=== PATIENT | female | born 1955 | race Caucasian/White ===

== ENCOUNTER 2019-10-30 14:31 | Emergency (ER) | payer BC, SELFPAY ==
[2019-10-30 14:45] VITALS: BP 188/93; PULSE 92; RESP 21; TEMP 36.7; O2SAT 99
--- NOTE | 2019-10-30 15:01 | ED.URI ---
HPI - URI/Sore Throat General Chief Complaint: Upper Respiratory Infection Stated Complaint: Sore throat/cough/headache Time Seen by Provider: 10/30/19 15:01 Source: patient and RN notes reviewed History of Present Illness HPI Narrative: Patient is a 63-year-old female presents the urgent care with complaints of sore throat, cough, headache. Patient denies any shortness of breath. States that she was vomiting with a little bit of nausea on Monday which is since subsided. Denies of any chest pain. Reports of a history of bronchitis when she was a smoker. States that she has been using sinus Pred and Robitussin [id number]. No other acute complaints. No acute distress noted. Patient read the plan of care. Related Data Home Medications Medication Instructions Recorded Confirmed naproxen 500 mg PO BID PRN 10/30/19 10/30/19 simvastatin 40 mg PO DAILY 10/30/19 10/30/19 tramadol 50 mg PO Q6H PRN 10/30/19 10/30/19 Allergies Allergy/AdvReac Type Severity Reaction Status Date / Time No Known Allergies Allergy Unknown NONE Verified 07/20/10 15:01 Review of Systems Review of Systems: Narrative: CONSTITUTIONAL: Reports of chills and sweats without known fever EYES: Denies visual changes, redness, or discharge. ENT: Reports of postnasal drainage and intermittent sore throat CARDIOVASCULAR: Denies chest pain, palpitations, or edema. RESPIRATORY: Reports a productive cough without dyspnea GASTROINTESTINAL: Denies abdominal pain, nausea, vomiting, or diarrhea. GENITOURINARY: Denies dysuria or hematuria. SKIN: Denies rash or itching. MUSCULOSKELETAL: Denies back pain, joint pain, or myalgia. NEUROLOGIC: Reports of intermittent headaches All other systems reviewed are negative, except as documented in HPI. PMFSH Comments At the time of my signature, I reviewed and agree with the nursing past medical, surgical, social, and family history. There is no relevant family history pertinent to the patient complaint. Exam Narrative: Exam Narrative: GENERAL: This is a well-nourished, well-developed patient, in no apparent distress. HEAD: normocephalic, atraumatic. EYES: PERRL. Sclera clear/white. Vision is grossly intact. EARS: External ears normal, auditory canals clear and without drainage, TMs normal without perforation. Hearing grossly intact. NOSE: External nose normal with no obvious nasal discharge, nares without redness, no rhinorrhea. THROAT: Mucous membranes moist, posterior pharynx clear. Moderate postnasal drainage NECK: Neck supple, non-tender without lymphadenopathy CARDIOVASCULAR: Regular rate and rhythm without murmurs, gallops, or rubs. RESPIRATORY: Slight crackles and diminished right lower lobe. Otherwise clear SKIN: warm, intact with no suspicious lesions or rash, good texture and turgor. NEURO: awake, alert, and oriented to person, place and time. There were no obvious focal neurologic abnormalities. EXTREMITIES: No clubbing, cyanosis, or edema. Course Vital Signs Vital signs: Vital Signs Temperature 98.1 F 10/30/19 14:45 Pulse Rate 92 10/30/19 14:45 Respiratory Rate 21 H 10/30/19 14:45 Blood Pressure 188/93 H 10/30/19 14:45 Pulse Oximetry 99 10/30/19 14:45 Temperature 98.1 F 10/30/19 14:45 Pulse Rate 92 10/30/19 14:45 Respiratory Rate 21 H 10/30/19 14:45 Blood Pressure 188/93 H 10/30/19 14:45 Pulse Oximetry 99 10/30/19 14:45 Reviewed?patient is informed that they may have pre-hypertension or hypertension based on a blood pressure reading in the department. I recommend the patient call the primary care provider listed on their discharge instructions or a physician of their choice this week to arrange follow-up for further evaluation of possible pre-hypertension or hypertension. MDM - URI/Sore Throat MDM Narrative Medical decision making narrative: Advised the patient to complete steroid regimen as prescribed. Complete antibiotic regimen as prescribed. Use inhaler as needed for
== END 2019-10-30 15:15 | disposition home or self-care (01) ==
PROVIDERS: Emergency Provider Nurse Practitioner Family; PCP Internal Medicine Gastroenterology
DX: J40 Bronchitis, not specified as acute or chronic (principal); E78.00 Pure hypercholesterolemia, unspecified; M17.0 Bilateral primary osteoarthritis of knee
CPT/HCPCS: 99213; G0463

== ENCOUNTER 2020-10-19 12:39 | Emergency (ER) | payer MEDICARE, SELFPAY ==
--- NOTE | 2020-10-19 12:57 | PC.NURSE ---
Patient was never seen by this nurse. Left from registration before triage
== END 2020-10-19 13:43 | disposition left against medical advice (07) ==
PROVIDERS: Emergency Provider Nurse Practitioner; PCP Internal Medicine Gastroenterology
DX: Z53.21 Procedure and treatment not carried out due to patient leaving prior to being seen by health care provider (principal)
CPT/HCPCS: 99199

== ENCOUNTER 2020-10-19 12:56 | Observation (INO) | payer MEDICARE, SELFPAY ==
[2020-10-19] VITALS (12 sets, daily range): BP systolic 132–180; BP diastolic 72–104; PULSE 69–98; RESP 12–24; TEMP 35.8–36.4; O2SAT 96–100; BMI 29.2
--- NOTE | ~2020-10-19 | XR_ITS ---
EXAMINATION: XR chest 2V EXAM DATE: 10/19/2020 13:24 INDICATION: Left anterior chest pain. History high blood pressure. TECHNIQUE: Frontal and lateral projections of the chest obtained and reviewed. Comparison is made to prior examination from 10/19/2020 FINDINGS: The lungs are clear. There are no pleural effusions. The cardiomediastinal silhouette is within normal limits. There is no pneumothorax suspected. The bones and soft tissues are unremarkab le. IMPRESSION: Unremarkable chest x-ray exam. Reviewed, dictated and finalized at location B. [facility]
--- NOTE | 2020-10-19 13:02 | ECG_ITS ---
Measurements Intervals [place] Rate: 79 P: 50 [place]: 162 QRS: -4 QRSD: 92 T: 37 QT: 337 QTc: 387 Interpretive Statements SINUS RHYTHM BASELINE ARTIFACT- I, III, AVL BORDERLINE ECG Electronically Signed On 10-19-2020 13:12:04 FOUNDRY MANAGER by Shaun Roblero D.O.
[2020-10-19 13:16] LABS: Basophils Absolute Auto 0.1 K/mm3 (0.0-0.1); Basophils Percent Auto 0.9 % (0.2-1.2); Eosinophils Absolute Auto 0.1 K/mm3 (0-0.3); Eosinophils Percent Auto 1.6 % (0-4.4); Hematocrit 42.2 % (37.0-47.0); Hemoglobin 14.2 g/dL (12.0-15.0); Immature Granulocyte Absolute 0.03 K/mm3 (0.00-0.031); Immature Granulocyte Percent A 0.4 % (0-0.5); Lymphocytes Absolute Auto 2.39 K/mm3 (0.9-3.2); Lymphocytes Percent Auto 30.3 % (18.3-44.2); Mean Corpuscular HGB Conc 33.6 g/dl (32-36); Mean Corpuscular Hemoglobin 31.1 pg (26-34); Mean Corpuscular Volume 92.3 fl (80-100); Mean Platelet Volume 9.9 fl (7.4-10.4); Monocytes Absolute Auto 0.5 K/mm3 (0.1-0.6); Monocytes Percent Auto 6.7 % (2.6-8.5); Neutrophils Absolute Auto 4.7 K/mm3 (1.3-6.7); Neutrophils Percent Auto 60.1 % (45.5-73.1); Platelet Count Result 357 k/mm3 (150-375); Red Blood Count 4.57 M/mm3 (4.2-5.4); Red Cell Distribution Width 12.7 % (11.5-14.5); White Blood Count 7.9 K/mm3 (4.5-10.0)
[2020-10-19 13:25] LABS: INR 0.9; Prothrombin Time 12.8 Seconds (11.1-14.7)
[2020-10-19 13:26] LABS: Partial Thromboplastin Time 28.5 SECONDS (22.3-36.8)
[2020-10-19 13:32] LABS: Anion Gap 8 mmol/L (8-16); Blood Urea Nitrogen 23 mg/dL (7-17); Carbon Dioxide 27 mmol/L (22-30); Chloride 104 mmol/L (98-107); Estimated CRCL calculation 73 ml/min; Estimated Glomerular Filt Rate > 60; Glucose 107 mg/dL (65-105); Potassium 4.3 mmol/L (3.4-5.0); Sodium 139 mmol/L (137-145)
[2020-10-19 13:44] LABS: Troponin I < 0.012 ng/mL (0.000-0.034)
[2020-10-19] MEDS: ASPIRIN 81 MG CHEWABLE TABLET 324 MG PO (14:37)
--- NOTE | 2020-10-19 14:53 | ED.CHESTPAIN ---
HPI - Chest Pain General Chief Complaint: Chest Pain Stated Complaint: Chest Pain Time Seen by Provider: 10/19/20 14:37 History of Present Illness HPI narrative: Patient is a 64-year-old female who presents ER with central chest pain. Pressure in deep. No radiation. 11/04. Lasted from 8 AM to 2 PM. No nausea/vomiting/shortness of breath. No aggravating or alleviating factors. No previous ID. Had a father who had a heart attack in his 40s and then again when he was elderly. Related Data Home Medications Medication Instructions Recorded Confirmed naproxen 500 mg PO BID PRN 10/30/19 10/19/20 simvastatin 40 mg PO HS 10/30/19 10/19/20 tramadol 50 mg PO Q6H PRN 10/30/19 10/19/20 Allergies Allergy/AdvReac Type Severity Reaction Status Date / Time No Known Allergies Allergy Unknown NONE Verified 10/19/20 14:37 Review of Systems Review of Systems: All systems reviewed & are unremarkable except as noted in HPI and below Constitutional: Constitutional: Denies chills, Denies fever(s) and Denies weakness ENT: Denies nasal congestion and Denies sore throat Cardiovascular: Cardiovascular: Reports chest pain, Denies rapid heart rate and Denies radiating jaw, neck or arm pain Respiratory: Respiratory: Denies cough, Denies dyspnea and Denies wheezing Gastrointestinal: Gastrointestinal: Denies abdominal pain, Denies diarrhea, Denies nausea and Denies vomiting Musculoskeletal: Musculoskeletal: Denies myalgias and Denies muscle cramps PMFSH Past Medical History Medical History (Updated 10/19/20 @ 21:30 by Tu Parekr MD) Hyperlipidemia Hypertension Surgical History Surgical History (Updated 10/19/20 @ 14:58 by Tu Parker MD) History of back surgery Family History Family History Father Myocardial infarct Skin cancer Mother Cerebrovascular accident Sibling Pulmonary emboli Social History Social History (Updated 10/19/20 @ 14:59 by Tu Parker MD) Smoking status: Former smoker Tobacco type: cigarettes Additional smoking assessment comments: quit 20 years ago Alcohol intake: never Substance use: never Substance use type: does not use Living arrangements: with family Spiritual care concerns: No Exam Narrative: Exam Narrative: GENERAL: Well-appearing, well-nourished, and in no acute distress. HEAD: Normocephalic, atraumatic. ENT: Mucous membranes moist. CHEST: Clear to auscultation. No respiratory distress. HEART: Regular rate and rhythm. Normal peripheral pulses. ABDOMEN: Soft, nontender, nondistended. EXTREMITIES: Normal range of motion. No edema. NEURO: Alert and oriented x3. PSYCH: Normal mood and affect. Course Course Emergency Course: Discussed with Dr. Roblero. Admit to [facility]. Vital Signs Vital signs: Vital Signs Temperature 96.5 F L 10/19/20 13:02 Pulse Rate 92 10/19/20 13:02 Respiratory Rate 18 10/19/20 13:02 Blood Pressure 180/97 H 10/19/20 13:02 Pulse Oximetry 96 10/19/20 13:02 Temperature 96.5 F L 10/19/20 13:02 Pulse Rate 82 10/19/20 20:00 Respiratory Rate 12 10/19/20 19:39 Blood Pressure 141/72 H 10/19/20 19:39 Pulse Oximetry 96 10/19/20 19:39 MDM - Chest Pain Lab Data Result diagrams: 10/19/20 13:10 10/19/20 13:10 Labs: Lab Results 10/19/20 10/19/20 10/19/20 Range/Units 13:10 13:10 13:10 WBC 7.9 (4.5-10.0) K/mm3 RBC 4.57 (4.2-5.4) M/mm3 Hgb 14.2 (12.0-15.0) g/dL Hct 42.2 (37.0-47.0) % MCV 92.3 (80-100) fl MCH 31.1 (26-34) pg MCHC 33.6 (32-36) g/dl RDW 12.7 (11.5-14.5) % Plt Count 357 (150-375) k/mm3 MPV 9.9 (7.4-10.4) fl Immature Gran % (Auto) 0.4 (0-0.5) % Neut % (Auto) 60.1 (45.5-73.1) % Lymph % (Auto) 30.3 (18.3-44.2) % [place] % (Auto) 6.7 (2.6-8.5) % Eos % (Auto) 1.6 (0-4.4) % Baso % (Auto) 0.9 (0.2-1.2) % Lymph # (Auto) 2.3
[2020-10-19 16:13] LABS: Troponin I < 0.012 ng/mL (0.000-0.034)
--- NOTE | 2020-10-19 17:54 | PC.NURSE ---
food tray ordered for pt at this time
--- NOTE | 2020-10-19 18:56 | PM.IMHP ---
H&P: HPI History of Present Illness Date/Time: 10/19/20 18:56 Reason for admit: Chest pain. Chief Complaint: Chest pain Narrative: Jesika Maxwell is a 64 year old female who came to ER due to chest pain. She has a history of hypertension (but is not on medications since it fluctuates) and dyslipidemia. Reports chest pain started this morning at 8:00 at rest and lasted until 2 pm. Pain has subsided. She can walk several blocks without any problems. She thinks it is stress related chest pains as she has to take care of 2 great-grandchildren and 2 of her children committed suicide. Denies orthopnea, PND, edema, palpitations, sob. Review of Systems Review of Systems: All systems reviewed & are unremarkable except as noted in HPI and below Constitutional: Constitutional: Reports as per HPI, Denies chills and Denies fever(s) Cardiovascular: Cardiovascular: Reports as per HPI, Reports chest pain, Denies leg edema and Denies lightheadedness Respiratory: Respiratory: Reports as per HPI and Denies dyspnea Gastrointestinal: Gastrointestinal: Reports as per HPI and Denies abdominal pain Genitourinary: Genitourinary: Reports as per HPI and Denies dysuria Musculoskeletal: Musculoskeletal: Reports as per HPI and Reports arthralgias Neurologic: Reports as per HPI, Denies dizziness and Denies syncope PMF Past Medical History Medical History (Updated 10/19/20 @ 21:30 by Tu Parker MD) Hyperlipidemia Hypertension Surgical History Surgical History (Updated 10/19/20 @ 14:58 by Tu Parker MD) History of back surgery Family History Family History Father Myocardial infarct Skin cancer Mother Cerebrovascular accident Sibling Pulmonary emboli Social History Social History (Updated 10/19/20 @ 14:59 by Tu Parker MD) Smoking status: Former smoker Tobacco type: cigarettes Additional smoking assessment comments: quit 20 years ago Alcohol intake: never Substance use: never Substance use type: does not use Living arrangements: with family Spiritual care concerns: No Meds Home Medications and Allergies Home Medications Medication Instructions Recorded Confirmed Type naproxen 500 mg PO BID PRN 10/30/19 10/19/20 History simvastatin 40 mg PO HS 10/30/19 10/19/20 History tramadol 50 mg PO Q6H PRN 10/30/19 10/19/20 History Allergies Allergy/AdvReac Type Severity Reaction Status Date / Time No Known Allergies Allergy Unknown NONE Verified 10/19/20 14:37 Vital Signs Vital Signs - 24 hr 10/19/20 13:02 10/19/20 14:33 10/19/20 14:35 Temperature 96.5 F L Pulse Rate 92 79 78 Respiratory Rate 18 24 H Blood Pressure 180/97 H 163/104 H Pulse Oximetry 96 97 10/19/20 15:49 10/19/20 16:33 10/19/20 16:34 Temperature Pulse Rate 83 82 Respiratory Rate 21 H 21 H Blood Pressure 143/81 H 143/80 H Pulse Oximetry 97 100 100 10/19/20 17:38 10/19/20 18:38 Temperature Pulse Rate 84 69 Respiratory Rate 19 15 Blood Pressure 132/91 H 132/91 H Pulse Oximetry 98 100 Exam Const: General: cooperative, healthy appearing and comfortable Resp: Auscultation: clear to auscultation bilaterally, no crackles, no rales, no rhonchi and no wheezes Cardio: Jugular venous distension: no JVD Rate: regular rate Rhythm: regular rhythm Heart sounds: no murmurs Peripheral pulses: dorsalis pedis present GI: GI Palp: No abdominal tenderness and Yes Soft to palpation Neuro: General: oriented to person, oriented to place and oriented to time Extrem: Right lower extremity: no edema Left lower extremity: no edema H&P: Results Labs Labs: Short CBC 10/19/20 Range/Units 13:10 WBC 7.9 (4.5-10.0) K/mm3 Hgb 14.2 (12.0-15.0) g/dL Hct 42.2 (37.0-47.0) % Plt Count 357 (150-375) k/mm3 [facility] 10/19/20 13:10 Sodium 139 Potassium 4.3 Chloride 104 Carbon Dioxide 27 BUN 23 H Creatin
--- NOTE | 2020-10-19 19:05 | ECG_ITS ---
Measurements Intervals [place] Rate: 79 P: 44 [place]: 164 QRS: -7 QRSD: 92 T: 35 QT: 361 QTc: 415 Interpretive Statements SINUS RHYTHM NORMAL ECG Electronically Signed On 10-19-2020 19:24:22 PRESSURE TANK OPERATOR by Shaun Roblero D.O.
[2020-10-19 19:17] LABS: Troponin I < 0.012 ng/mL (0.000-0.034)
[2020-10-19] MEDS: SIMVASTATIN 20 MG TABLET 40 MG PO (20:07)
[2020-10-19 20:45] LABS: Cholesterol 197 mg/dL (0-200); HDL Direct 53 mg/dL; LDL Cholesterol Direct 114 mg/dL; Triglycerides 171 mg/dL (<150)
[2020-10-20] VITALS: PULSE 71
--- NOTE | 2020-10-20 | EST_ITS ---
Patient Info Name: Jesika Maxwell Age: 64 years : 1955 Gender: Female Ht: 66 in Wt: 174 lbs BSA: 1.94 m2 HR: 72 bpm BP: 165 / 89 mmHg Exam Date: 10/20/2020 8:08 AM Exam Location: [facility] Patient Status: Inpatient Admit Date: 10/19/2020 Staff Ordering Physician: Shaun Roblero DO Special Investigator: Justa Hernandez RDCS Attending Provider: Shaun Roblero DO Exercise Technologist: Cally Cody RDCS Exercise Physician: Shaun Roblero DO Exam Type: CA stress echo Study Info Indications R07.9 - Chest pain, unspecified Treadmill exercise stress echocardiogram is performed. Summary 1. 1. Negative Darnell exercise stress test for ischemic ST changes by ECG criteria. 2. 2. Poor functional capacity, achieving 4.7 METs of workload. 3. 3. Baseline hypertension with hypertensive response to exercise. 4. 4. Rapid HR response to exercise. 5. 5. Appropriate HR recovery at 1 minute post exercise. 6. 6. Negative stress echocardiogram for ischemia by wall motion analysis. 7. 7. Patient informed of the above results. Stress Echo Findings Left Ventricle Appropriate increase in LV endocardial thickening with systole. Appropriate augmentation of contractility with systole. No wall motion abnormality. Left Ventricle Normal LV systolic function, no wall motion abnormality. Protocol: Darnell Stress ECG Details Stage: REST Duration (min): 4 min : 49 sec Speed (mph): 0.0 Grade (%): 0 HR (bpm): 74 SBP (mmHg): 165 DBP (mmHg): 89 METS: --- Stage: REST Duration (min): 11 min : 44 sec Speed (mph): 0.0 Grade (%): 0 HR (bpm): 86 SBP (mmHg): 165 DBP (mmHg): 89 METS: --- Stage: STAGE 1 Duration (min): 1 min : 0 sec Speed (mph): 1.7 Grade (%): 10 HR (bpm): 115 SBP (mmHg): 165 DBP (mmHg): 89 METS: --- Stage: STAGE 1 Duration (min): 2 min : 0 sec Speed (mph): 1.7 Grade (%): 10 HR (bpm): 136 SBP (mmHg): 165 DBP (mmHg): 89 METS: --- Stage: STAGE 1 Duration (min): 3 min : 0 sec Speed (mph): 1.7 Grade (%): 10 HR (bpm): 140 SBP (mmHg): 235 DBP (mmHg): 101 METS: --- Stage: STAGE 2 Duration (min): 0 min : 1 sec Speed (mph): 0.0 Grade (%): 0 HR (bpm): 140 SBP (mmHg): 235 DBP (mmHg): 101 METS: --- Stage: RECOVERY Duration (min): 0 min : 58 sec Speed (mph): 0.0 Grade (%): 0 HR (bpm): 104 SBP (mmHg): 235 DBP (mmHg): 101 METS: --- Stage: RECOVERY Duration (min): 1 min : 58 sec Speed (mph): 0.0 Grade (%): 0 HR (bpm): 92 SBP (mmHg): 241 DBP (mmHg): 89 METS: --- Stage: RECOVERY Duration (min): 2 min : 58 sec Speed (mph): 0.0 Grade (%): 0 HR (bpm): 97 SBP (mmHg): 241 DBP (mmHg): 89 METS: --- Stage: RECOVERY Duration (min): 3 min : 59 sec Speed (mph): 0.0 Grade (%): 0 HR (bpm): 82 SBP (mmHg): 179 DBP (mmHg): 71 METS: --- Stage: RECOVERY Duration
[2020-10-20 02:00] VITALS: PULSE 73
[2020-10-20 04:00] VITALS: BP 134/57; PULSE 76; PULSE 82; RESP 14; TEMP 36.4; O2SAT 97
[2020-10-20 06:00] VITALS: PULSE 89
[2020-10-20 08:00] VITALS: BP 136/83; PULSE 80; PULSE 83; RESP 16; TEMP 36.8; O2SAT 97
--- NOTE | 2020-10-20 08:15 | PC.NURSE ---
DOWN VIA WC FOR STRESS ECHOCARDIOGRAM.
--- NOTE | 2020-10-20 08:39 | PM.DS ---
DS: Admitting Diagnosis Admitting Diagnosis Admitting Diagnosis: Chest pain DS: Summary Hospital Course Reason for hospitalization: Chest pain Hospital Course: Patient was admitted through ER yesterday for chest pains. No more chest pains. She is under a lot of stress at home. She was ruled out for MA by EKG and 3 sets of troponins. She had stress echo this morning that was normal. Her BP is high running 130-160's systolic. Time spent discussing smoking cessation with patient: 3 to 10 minutes Status at Discharge Functional status at discharge: independent ambulation Overall status at discharge: patient is back to baseline Time Spent with Patient Time attestation: Total time spent providing and/or coordinating discharge services: Time spent: Less than 30 minutes Specific discharge activities: Activity as tolerated. Diet: Heart healthy diet. Disposition: Home. F/U with me in 1 week. DS: Data Data Completed and Pending Labs on day of discharge: Labs from last 24 hours 10/19/20 10/19/20 10/19/20 18:47 15:42 13:10 WBC RBC Hgb Hct MCV MCH MCHC RDW Plt Count MPV Immature Gran % (Auto) Neut % (Auto) Lymph % (Auto) [place] % (Auto) Eos % (Auto) Baso % (Auto) Lymph # (Auto) [place] # (Auto) Eos # (Auto) Baso # (Auto) Abs Immat Gran (auto) Absolute Neuts (auto) Absolute Nucleated RBC Nucleated RBC % PT INR APTT Sodium 139 Potassium 4.3 Chloride 104 Carbon Dioxide 27 Anion Gap 8 BUN 23 H Creatinine 0.70 Estim Creat Clear Calc 73 Estimated GFR > 60 Glucose 107 H Calcium 10.0 Troponin I < 0.012 < 0.012 < 0.012 Triglycerides 171 H Cholesterol 197 LDL Cholesterol Direct 114 HDL Direct 53 10/19/20 10/19/20 13:10 13:10 WBC 7.9 RBC 4.57 Hgb 14.2 Hct 42.2 MCV 92.3 MCH 31.1 MCHC 33.6 RDW 12.7 Plt Count 357 MPV 9.9 Immature Gran % (Auto) 0.4 Neut % (Auto) 60.1 Lymph % (Auto) 30.3 [place] % (Auto) 6.7 Eos % (Auto) 1.6 Baso % (Auto) 0.9 Lymph # (Auto) 2.39 [place] # (Auto) 0.5 Eos # (Auto) 0.1 Baso # (Auto) 0.1 Abs Immat Gran (auto) 0.03 Absolute Neuts (auto) 4.7 Absolute Nucleated RBC 0.0 Nucleated RBC % 0.0 PT 12.8 INR 0.9 APTT 28.5 Sodium Potassium Chloride Carbon Dioxide Anion Gap BUN Creatinine Estim Creat Clear Calc Estimated GFR Glucose Calcium Troponin I Triglycerides Cholesterol LDL Cholesterol Direct HDL Direct Discharge Plan Discharge Discharging Clinician: Shaun Roblero Patient Disposition: Home, Self-Care Activity: as tolerated Diet: heart healthy Patient Instructions: Antibiotic Form Stand Alone Forms: General Discharge Information Follow-up/Referrals: Shaun Roblero DO [Physician] - Wilder,Gilbert Huerta MD [Primary Care Provider] - Discharge Medications: New amlodipine [Norvasc] 5 mg Tablet 5 mg PO QAM Qty: 30 RF: 5 Continued simvastatin 40 mg Tablet 40 mg PO HS RF: 0 tramadol 50 mg Tablet 50 mg PO Q6H PRN (Reason: Pain (Scale Score 7-10)) RF: 0 naproxen 500 mg Tablet 500 mg PO BID PRN (Reason: Moderate Pain (Scale Score 5-6)) RF: 0 Date of admission: 10/19/20 16:05 Primary Care Provider: WilderGilbert Admitting Provider: Shaun Roblero Attending physician on admission: Shaun Roblero Condition: Stable
--- NOTE | 2020-10-20 09:10 | PC.NURSE ---
HAS RETURNED FROM STRESS ECHO. UP IN ROOM.
--- NOTE | 2020-10-20 09:38 | PC.NURSE ---
DISCHARGE INSTRUCTIONS AND FOLLOW UP CARE REVIEWED W/ PT. VOICED UNDERSTANDING OF ALL. DISCHARGED HOME, OUT AMBULATORY WITH ALL PERSONAL BELONGINGS AND DISCHARGE INSTRUCTIONS TO OWN CAR. NO DISTRESS NOTED. VOICES NO C/O.
== END 2020-10-20 09:50 | disposition home or self-care (01) ==
LOC: ANHED 14:57 → ANHCPC 18:19
PROVIDERS: Admitting Provider Internal Medicine Cardiovascular Disease; Emergency Provider Emergency Medicine; PCP Internal Medicine Gastroenterology; Visit Provider Internal Medicine Cardiovascular Disease
DX: R07.9 Chest pain, unspecified (principal); I10 Essential (primary) hypertension; E78.5 Hyperlipidemia, unspecified; Z87.891 Personal history of nicotine dependence
CPT/HCPCS: 36415; 71046; 80048; 80061; 84484; 85025; 85610; 85730; 93005; 93351; 99285; A9270; G0378

== ENCOUNTER 2021-08-25 13:27 | Outpatient (CLI) | payer MEDICARE, SELFPAY ==
--- NOTE | ~2021-08-25 | XR_ITS ---
EXAMINATION: XR knee LT min 4V DATE: 08/25/2021 13:59 INDICATION: Osteoarthritis of left knee. TECHNIQUE: 4 views of left knee including standing views were obtained. COMPARISON: None. FINDINGS: Bone alignment is normal. No fracture. There is moderate osteoarthritis of medial compartme nt and mild osteoarthritis of lateral and patellofemoral compartments. There is chondrocalcinosis of the menisci. There is a small knee joint effusion. There are loose bodies in the knee joint posterior ly. IMPRESSION: 1. Moderate left knee osteoarthritis. 2. Small left knee joint effusion with loose bodies. Reviewed, dictated and finalized at location D. [facility]
--- NOTE | ~2021-08-25 | XR_ITS ---
EXAMINATION: XR knee RT min 4V DATE: 08/25/2021 13:59 INDICATION: Osteoarthritis of right knee. TECHNIQUE: 4 views of right knee including standing views were obtained. COMPARISON: None. FINDINGS: There is varus angulation at the knee. No fracture. There is severe osteoarthritis of media l compartment and mild osteoarthritis of lateral and patellofemoral compartments. There is chondrocal cinosis of the menisci. There are loose bodies in the knee joint posteriorly. There is a small knee j oint effusion. IMPRESSION: 1. Severe right knee osteoarthritis. 2. Small right knee joint effusion with loose bodies. Reviewed, dictated and finalized at location D. 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
--- NOTE | ~2021-08-25 | US_ITS ---
EXAMINATION: US soft tissue head and neck DATE: 08/25/2021 14:20 INDICATION: Chronic enlarging swelling, mass and lump at the right neck TECHNIQUE: Multiple ultrasound images of the thyroid were obtained. COMPARISON: None. FINDINGS: The right thyroid lobe measures 5.3 x 2.3 x 2.5 cm. The left thyroid lobe measures 3.9 x 2.1 x 1.6 c m. Multinodular goiter. The largest cysts are predominately solid isoechoic color than wide 2.9 cm n odule in the right thyroid with smooth margins and without echogenic foci (TI-RADS 4, moderately susp icious , FNA if >=1.5 cm, annual followup is >=1 cm). Smaller TI RADS 3 nodules which are wider than tall but otherwise with similar imaging features measuring 2.2 cm in the left thyroid lobe and 1.8 cm in the right thyroid lobe (TI-RADS 3, mildly suspicious , FNA if >=2.5 cm, annual followup is >=1.5 cm). Couple additional wider than tall solid hypoechoic right thyroid nodules each measuring 1.3 cm w ith smooth margins and without echogenic foci, also TI RADS 4 measuring. IMPRESSION: 1. Multinodular goiter. Recommend ultrasound-guided biopsy of the largest 2.9 cm TI RADS 4 right thyr oid nodule. Reviewed, dictated and finalized at location A. SFORMER REPAIRER IMPRESSION: 1. Multinodular goiter. Recommend ultrasound-guided biopsy of the largest 2.9 c m TI RADS 4 right thyroid nodule.
== END 2021-08-25 13:28 | disposition home or self-care (01) ==
PROVIDERS: PCP Internal Medicine Gastroenterology; Visit Provider Internal Medicine Gastroenterology
DX: E04.2 Nontoxic multinodular goiter (principal); M17.0 Bilateral primary osteoarthritis of knee; M25.462 Effusion, left knee; M23.42 Loose body in knee, left knee; M25.461 Effusion, right knee; M23.41 Loose body in knee, right knee
CPT/HCPCS: 73564; 76536

== ENCOUNTER 2021-09-08 13:20 | Outpatient (CLI) | payer MEDICARE, SELFPAY ==
--- NOTE | ~2021-09-08 | US_ITS ---
EXAMINATION: US FNA w image guidance DATE: 09/08/2021 14:13 INDICATION: Right thyroid nodule TECHNIQUE: A time-out was performed to verify the patient's name, date of , and procedure to be performed . The procedure and its benefits and risks were discussed with the patient. Risks specifically discus sed included bleeding and infection. The patient understood the risks and agreed to proceed. The neck was prepped and draped in the usual sterile manner. 3 mL 1% lidocaine was used for local anesthesia . 6 passes were made with a 25G needle into the lesion. Appropriate needle location was documented with continuous sonographic guidance. The specimens were passed to the glass technologist in the room. A sterile bandage was applied. There were no immediate complications. FINDINGS: Grayscale ultrasound images demonstrate biopsy needles advanced into the predominantly solid TI RADS 4 right thyroid nodule of concern which measures 2.7 cm in maximal diameter on the current study. IMPRESSION: 1. Successful ultrasound-guided fine needle aspiration of the 2.7 cm TI RADS 4 right thyroid nodule of concern. Reviewed, dictated and finalized at location A. ION CHIEF
== END 2021-09-08 13:21 | disposition home or self-care (01) ==
PROVIDERS: PCP Internal Medicine Gastroenterology; Visit Provider Internal Medicine Gastroenterology
DX: E04.2 Nontoxic multinodular goiter (principal)
CPT/HCPCS: 10005; 88173; 88305

== ENCOUNTER 2022-03-08 11:51 | Outpatient (CLI) | payer MEDICARE, SELFPAY ==
--- NOTE | 2022-03-08 12:46 | ECG_ITS ---
Measurements Intervals [place] Rate: 68 P: 64 FL: 170 QRS: -5 QRSD: 86 T: 53 QT: 373 QTc: 399 Interpretive Statements SINUS RHYTHM BASELINE ARTIFACT- II, III, AVF NORMAL ECG Electronically Signed On 03-08-2022 13:02:14 CDT by Shaun Roblero D.O.
[2022-03-08 13:12] LABS: Basophils Absolute Auto 0.1 K/mm3 (0.0-0.1); Basophils Percent Auto 0.8 % (0.2-1.2); Eosinophils Absolute Auto 0.2 K/mm3 (0-0.3); Eosinophils Percent Auto 1.7 % (0-4.4); Hematocrit 47.6 % (37.0-47.0); Hemoglobin 15.6 g/dL (12.0-15.0); Immature Granulocyte Absolute 0.02 K/mm3 (0.00-0.031); Immature Granulocyte Percent A 0.2 % (0-0.5); Lymphocytes Absolute Auto 2.86 K/mm3 (0.9-3.2); Lymphocytes Percent Auto 32.6 % (18.3-44.2); Mean Corpuscular HGB Conc 32.8 g/dl (32-36); Mean Corpuscular Hemoglobin 30.5 pg (26-34); Mean Platelet Volume 10.4 fl (7.4-10.4); Monocytes Absolute Auto 0.5 K/mm3 (0.1-0.6); Monocytes Percent Auto 6.2 % (2.6-8.5); Neutrophils Absolute Auto 5.1 K/mm3 (1.3-6.7); Neutrophils Percent Auto 58.5 % (45.5-73.1); Platelet Count Result 340 k/mm3 (150-375); Red Blood Count 5.12 M/mm3 (4.2-5.4); White Blood Count 8.8 K/mm3 (4.5-10.0)
[2022-03-08 13:22] LABS: Albumin Level 4.9 g/dL (3.5-5.1); Anion Gap 5 mmol/L (8-16); Blood Urea Nitrogen 14 mg/dL (7-17); Calcium 10.2 mg/dL (8.4-10.2); Carbon Dioxide 31 mmol/L (22-30); Chloride 102 mmol/L (98-107); Estimated Glomerular Filt Rate > 60; Glucose 92 mg/dL (65-110); Potassium 5.4 mmol/L (3.4-5.0); Sodium 138 mmol/L (137-145)
[2022-03-08 13:24] LABS: Urine Cotinine NEGATIVE
[2022-03-08 18:37] LABS: Hemoglobin A1C 5.6 % (<5.7)
== END 2022-03-08 11:52 | disposition home or self-care (01) ==
PROVIDERS: PCP Internal Medicine Gastroenterology; Visit Provider Orthopaedic Surgery
DX: M17.0 Bilateral primary osteoarthritis of knee (principal); Z01.818 Encounter for other preprocedural examination
CPT/HCPCS: 80048; 80307; 82040; 83036; 85025; 87070; 93005

== ENCOUNTER 2022-04-04 00:10 | Day surgery (SDC) | payer MEDICARE, SELFPAY ==
--- NOTE | 2022-03-08 12:07 | PC.NURSE ---
Report to the Outpatient Waiting Room, entrance under the green pavilion located off [facility], at time _1000_ on date _03/23/22_. OR Time: _1200_. - You and your visitor will be asked a series of questions to screen for COVID 19 for your protection. - Only one visitor is allowed at this time. - The patient visitor is requested to leave or wait in car when not with patient. - A mask is required within the hospital. Patients may have clear liquids (water, carbonated beverages, clear teas, apple juice) until 3 hours prior to surgery 0900 AM) with a maximum of 20 ounces. - No food from midnight until time of surgery Take the following medications with a SIP of water the morning of surgery: _TRAMADOL IF NEEDED__ Medications to discontinue per physician _MULTIVITAMIN 3 DAYS PRIOR TO SURGERY_ Date to take last dose 03/19/22__ Please no make-up, nail yakut, hairspray, perfume, deodorant, or body powder the day of surgery. No jewelry (including any body piercings) or valuables the day of surgery, leave them at home. Please take a shower or bath the night before, or the morning of, surgery with an antibacterial soap. Wear comfortable, loose fitting clothing. - Jewelry must be removed prior to entering the operating room. Rings and piercings that are not removed may be cut off. - The hospital will not accept responsibility for valuables. - Please leave all valuables, including medications, at home the day of surgery. If you are going home after surgery, a licensed bulk delivery driver must drive you home. - NO public transportation without another adult. - We recommend that an adult stay with you for 24 hours following discharge. - We also recommend that you do not drive, make important decision, drink alcoholic beverages, or take any drugs that were not prescribed by your health care provider for at least 24 hours after your discharge time. Follow any additional instructions given to you from your surgeon. TOTAL JOINT CLASS 03/16/22 @ [address] [place] [address], USE MAIN HOSPITAL ENTRANCE - LOWER LEVEL If you or anyone in your household have experienced Covid symptoms in the past week, please notify your surgeon or the nurse liaison at the phone number below for possible testing. Telephone instructions given to ____PT and asked if any additional questions and then verbalized understanding. Patient advised to call surgeon office or pre surgery nurse liaison [phone] if any additional questions.
[2022-03-08 12:23] VITALS: BP 144/84; PULSE 74; RESP 18; TEMP 36.9; O2SAT 98; BMI 26.4
--- NOTE | 2022-03-23 14:00 | PC.NURSE ---
Report to the Outpatient Waiting Room, entrance under the green pavilion located off [facility], at time ___0600____ on date __04/04/22 . OR Time: ___729 . - You and your visitor will be asked a series of questions to screen for COVID 19 for your protection. - Only one visitor is allowed at this time. - The patient visitor is requested to leave or wait in car when not with patient. - A mask is required within the hospital. Patients may have clear liquids (water, carbonated beverages, clear teas, apple juice) until 3 hours prior to surgery (0430 AM) with a maximum of 20 ounces. - No food from midnight until time of surgery - Infants may have breast milk until 4 hours before surgery, infant formula 6 hours prior to surgery. - Children will be allowed to drink immediately following surgery. If applicable, please bring a bottle or sippy cup to assist with drinking. Juice, water, soda, and popsicles are readily available. For infants on formula, please bring formula the day of surgery. Pacifiers are allowed. Take the following medications with a SIP of water the morning of surgery: _TRAMADOL IF NEEDED_ Medications to discontinue per ANESTHESIA - ALL VITAMINS/SUPPLEMENTS 3 DAYS PRIOR TO SURGERY, Date to take last dose 03/31/22_ Please no make-up, nail micronesian, hairspray, perfume, deodorant, or body powder the day of surgery. No jewelry (including any body piercings) or valuables the day of surgery, leave them at home. Please take a shower or bath the night before, or the morning of, surgery with an antibacterial soap. Wear comfortable, loose fitting clothing. Children are encouraged to wear pajamas. - Jewelry must be removed prior to entering the operating room. Rings and piercings that are not removed may be cut off. - The hospital will not accept responsibility for valuables. - Please leave all valuables, including medications, at home the day of surgery. If you are going home after surgery, a licensed freight delivery driver must drive you home. - NO public transportation without another adult. - We recommend that an adult stay with you for 24 hours following discharge. - We also recommend that you do not drive, make important decision, drink alcoholic beverages, or take any drugs that were not prescribed by your health care provider for at least 24 hours after your discharge time. For Pediatric surgeries, we recommend two adults accompany the child home (only one inside the building at this time). Follow any additional instructions given to you from your surgeon. TOTAL JOINT CLASS 03/30/22 @ [address] [place] [address] - USE MAIN ENTRANCE, LOWER LEVEL If you or anyone in your household have experienced Covid symptoms in the past week, please notify your surgeon or the nurse liaison at the phone number below for possible testing. Telephone instructions given to ____PT and asked if any additional questions and then verbalized understanding. Patient advised to call surgeon office or pre surgery nurse liaison [phone] if any additional questions.
[2022-03-23 14:02] VITALS: BMI 26.0
--- NOTE | 2022-03-30 15:57 | PM.IMHP ---
H&P: HPI History of Present Illness Date/Time: 03/30/22 15:57 Chief Complaint: Bilateral knee DJD knee Narrative: 66-year-old female patient of Dr. Hdz presents today for left total knee arthroplasty with cortisone injection into the right knee. Patient has been having pain in her knees for years. She had cortisone injections in September of this year which only gave her relief for couple months. She was taking naproxen 500 mg twice a day in the past. This started causing her GI issues and therefore stopped last year. He has been using tramadol to help with pain control. Patient has severe medial compartment osteoarthritis in both knees. She feels this point she is ready to proceed with total knee arthroplasty rather continue nonsurgical treatment. Review of Systems Review of Systems: All systems reviewed & are unremarkable except as noted in HPI and below PMFSH Past Medical History Medical History Hyperlipidemia Hypertension Surgical History Surgical History History of back surgery Family History Family History Father Myocardial infarct Skin cancer Mother Cerebrovascular accident Sibling Pulmonary emboli Social History Social History Smoking packs per day: 1.5 Smoking cigarettes per day: 30.0 Years smoked: 15 Smoking pack-years: 22.50 Smoking status: Former smoker Tobacco type: cigarettes Second hand tobacco smoke exposure: No Smoking end date: 08/28/01 Additional smoking assessment comments: PT DENIES ALL FORMS OF TOBACCO USE Alcohol intake: former Substance use: current Substance use type: marijuana Other 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 usage details: 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 Last use: 03/05/22 Additional living arrangements comments: 26 YR OLD GRANDDAUGHTER LIVES WITH PT Spiritual care concerns: No Meds Home Medications and Allergies Home Medications Medication Instructions Recorded Confirmed Type tramadol 50 mg tablet 50 mg PO Q6H PRN Pain (Scale Score 10/30/19 03/23/22 History 7-10) calcium citrate 315 mg 1 tablet PO DAILY 03/08/22 03/23/22 History calcium-vitamin D3 6.25 mcg (250 unit) tablet (Citracal + Vitamin D Maximum) diphenhydramine 25 2 tablet PO HS PRN Sleep 03/08/22 03/23/22 History mg-acetaminophen 500 mg tablet (Tylenol PM Extra Strength) melatonin 10 mg tablet 10 mg PO HS 03/08/22 03/23/22 History dapbhxqm-gxb-oolpv 80 mcg-lutein 1 tablet PO QAM 03/08/22 03/23/22 History 166.7 mcg-herbal 66.7 mg chew tablet (Alive Premium Women's 50 Plus) pravastatin 40 mg tablet 40 mg HS 03/08/22 03/23/22 History zolpidem 5 mg tablet 5 mg PO HS PRN Sleep 03/08/22 03/23/22 History Allergies Allergy/AdvReac Type Severity Reaction Status Date / Time No Known Allergies Allergy Unknown NONE Verified 03/23/22 13:59 Exam Narrative: 66-year-old female alert pleasant. She is 5 ft 3 and 157 lb. Left knee has range motion from 0-40 degrees. Mild medial pseudolaxity. Normal stability in the knee. Negative Norma's. Hip range motion is full without discomfort. Normal quad strength. Normal sensation left lower extremity. 2+ dorsalis pedis and 1+ post tibial artery pulse. No effusion in the knee. Moderately severe tenderness over joint line. Resp: Auscultation: clear to auscultation bilaterally Cardio: Rate: regular rate Rhythm: regular rhythm Assessment and Plan Assessment and plan (1) Knee arthropathy: Code(s): M17.10 - Unilateral primary osteoarthritis, unspecified knee Status: Acute Plan 66-year-old female who has severe medial compartment osteoarthritis. She has failed conservative measures and feels at this point she is ready to proceed with total knee arthroplasty. Surgical procedure as well as
[2022-04-04] VITALS (15 sets, daily range): BP systolic 130–178; BP diastolic 56–90; PULSE 71–96; RESP 12–18; TEMP 36–36.9; O2SAT 91–100
--- NOTE | ~2022-04-04 | XR_ITS ---
EXAMINATION: XR knee LT 2V DATE: 04/04/2022 10:26 INDICATION: Total left knee arthroplasty. Postop. TECHNIQUE: 2 views of left knee were obtained. COMPARISON: Left knee radiographs 08/25/2021 FINDINGS: There is a total left knee arthroplasty in near-anatomic alignment. No fracture. There is a small osteophyte of the patella. There is gas in the knee joint and soft tissues, consistent with re cent surgery. IMPRESSION: 1. Total left knee arthroplasty in near-anatomic alignment. Reviewed, dictated and finalized at location A.
[2022-04-04] MEDS: ACETAMINOPHEN 500 MG TABLET 1000 MG PO ×4 (06:31→23:30)
[2022-04-04] MEDS: LACTATED RINGERS 1,000 ML 30 ML IV CONT ×2 (06:47→10:27)
--- NOTE | 2022-04-04 06:50 | WPDANESEPPF ---
Anes - Initial Pre Proc Eval Procedure: Operation Date: 04/04/22 07:30 Proposed Procedures p Left Total Knee Arthroplasty, Cortisone Injection Right Knee - Migel Worthy MD Date/Time: 04/04/22 06:50 Surgeon: Migel Worthy MD Pre Op Diagnosis: oa bilateral knees Patient Data Age: 66 Gender: F Height: 1.64 m Weight: 70.5 kg Last Vital Signs Temp 36.6 C 04/04/22 06:22 Pulse 71 04/04/22 06:22 Resp 16 04/04/22 06:22 BP 139/75 04/04/22 06:22 Pulse Ox 97 04/04/22 06:22 O2 Del Method Room Air 04/04/22 06:22 Allergies Allergy/AdvReac Type Severity Reaction Status Date / Time No Known Allergies Allergy Unknown NONE Verified 04/04/22 06:25 Home Medications Medication Instructions Recorded Confirmed Type tramadol 50 mg tablet 50 mg PO Q6H PRN Pain (Scale Score 10/30/19 04/04/22 History 7-10) calcium citrate 315 mg 1 tablet PO DAILY 03/08/22 04/04/22 History calcium-vitamin D3 6.25 mcg (250 unit) tablet (Citracal + Vitamin D Maximum) diphenhydramine 25 2 tablet PO HS PRN Sleep 03/08/22 04/04/22 History mg-acetaminophen 500 mg tablet (Tylenol PM Extra Strength) melatonin 10 mg tablet 10 mg PO HS 03/08/22 04/04/22 History ygrvmaaw-rmk-knbwa 80 mcg-lutein 1 tablet PO QAM 03/08/22 04/04/22 History 166.7 mcg-herbal 66.7 mg chew tablet (Alive Premium Women's 50 Plus) pravastatin 40 mg tablet 40 mg HS 03/08/22 04/04/22 History zolpidem 5 mg tablet 5 mg PO HS PRN Sleep 03/08/22 04/04/22 History Patient hx anesthesia problems: none Family hx anesthesia problems: none Results Review: All pre-operative results and documents have been reviewed as part of the pre-operative evaluation. [facility] Past Medical History Medical History Hyperlipidemia Hypertension Surgical History Surgical History History of back surgery Family History Family History Father Myocardial infarct Skin cancer Mother Cerebrovascular accident Sibling Pulmonary emboli Social History Social History Smoking packs per day: 1.5 Smoking cigarettes per day: 30.0 Years smoked: 15 Smoking pack-years: 22.50 Smoking status: Former smoker Tobacco type: cigarettes Second hand tobacco smoke exposure: No Smoking end date: 08/28/01 Additional smoking assessment comments: PT DENIES ALL FORMS OF TOBACCO USE Alcohol intake: former Substance use: current Substance use type: marijuana Other substance usage details: 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 Last use: 03/05/22 Living arrangements: with family Additional living arrangements comments: 26 YR OLD GRANDDAUGHTER LIVES WITH PT Spiritual care concerns: No Anes - Eval Final PreProcedure Day of Procedure 04/04/22 06:50 Patient weight: overweight Heart: regular rate and rhythm Lungs: clear to auscultation Airway: Mallampati scale class II Neurological: alert and oriented Last oral intake: >/= 8 hours ASA classification: III Emergent: no Anesthetic plan: proceed Anesthesia type and monitoring: general ETT and standard monitoring Results Review: All pre-operative results and documents have been reviewed as part of the pre-operative evaluation. Informed Consent: The patient's anesthetic plan and its attendant risks and benefits were discussed with the patient/family/POA. Questions were solicited and answers provided to the satisfaction of the patient/family/POA.
[2022-04-04] MEDS: TRANEXAMIC ACID 1,000MG/ISO100 1,000 MG/100 ML BAG 200 MG IVPB (07:00)
--- NOTE | 2022-04-04 07:23 | WPDHPUPDATE1 ---
History and Physical Update Update Date/Time: 04/04/22 07:23 History and Physical has been reviewed, including an updated exam of the patient. There are NO changes in the patient's condition. Risks, benefits, and alternatives have been discussed and questions answered. Patient agrees to proceed with procedure.
[2022-04-04] MEDS: ceFAZolin 2 GM/D5W 50 ML 2 GM/50 ML BAG IVPB (07:30)
[2022-04-04] MEDS: ceFAZolin SODIUM 1 GM VIAL 3 GM IRRIGATION (08:05)
[2022-04-04] MEDS: ceFAZolin SODIUM 1 GM VIAL IV PUSH (09:33)
[2022-04-04] MEDS: TRANEXAMIC ACID 1,000 MG/10 ML AMPUL 1000 MG IV PUSH (09:35)
--- NOTE | 2022-04-04 10:34 | PM.OP ---
Procedure Note - Brief Procedure Note - Brief Date of procedure: 04/04/22 <RHIANNON Dunaway - Last Filed: 04/04/22 10:35> 04/04/22 <Migel Worthy MD - Last Filed: 04/04/22 10:44> Pre-op diagnosis: oa bilateral knees <RHIANNON Dunaway - Last Filed: 04/04/22 10:35> Bilateral knee DJD <RHIANNON Dunaway - Last Filed: 04/04/22 10:35> Procedure performed: Left total knee arthroplasty <RHIANNON Dunaway - Last Filed: 04/04/22 10:35> Description of procedure: Patient had left total knee arthroplasty done on 09/04. I was involved in positioning patient on the OR table as well as prepping and draping. I was involved as a 1st assist throughout the time of surgery and wound closure as well as helping to get the patient to recovery room. 3 hours of total time was spent. <RHIANNON Dunaway - Last Filed: 04/04/22 10:35> Surgeon: RHIANNON Dunaway <RHIANNON Dunaway - Last Filed: 04/04/22 10:35>
--- NOTE | 2022-04-04 10:37 | W.PM.PROC2 ---
Procedure Note - Detailed Date of Procedure 04/04/22 Pre-op Diagnosis oa bilateral knees Post-op Diagnosis Same Procedure Performed Cortisone injection right knee, left total knee arthroplasty Surgeon Migel Worthy MD Waste Handling Technician Joshua Anesthesia General Description of Procedure Patient was brought to the operating room general anesthesia was administered. She received weight based vancomycin 2 g Ancef 1 g of tranexamic acid preoperatively. The right knee was prepped with ChloraPrep and 80 mg of Depo Medrol and 3 cc 1% lidocaine were injected the right knee joint without difficulty. The left knee was prepped draped usual fashion. Limb was exsanguinated tourniquet elevated to 250 mmHg. A 7 in longitudinal midline incision was using a vastus medialis approach utilized splitting the vastus medialis at the superior pole of the patella. Infrapatellar and suprapatellar fat pads were excised and a quadriceps synovectomy carried out. The articular cartilage on the patella was normal and this was preserved. Minimal lateral facetectomy was performed. Guide ysabel was inserted on the femoral canal after aspiration of canal contents using the 5 degree valgus cutting bushing 8 mm of bone removed from the distal femur. She had approximately 5? of hyperextension under anesthesia preoperatively. Next the tibial plateau was cut. We removed approximately 5 or 6 mm from the medial and lateral plateaus. Meniscal remnants were excised the PCL was recessed. We did not perform posterior capsular release. At 90? of flexion flexion gap was 8 mm medially tight 11 mm laterally. Femoral sizing guide set at 4? of external rotation was applied to the distal femur and this matched Whitesides line. Posterior referencing pinholes were placed. The 65 was too wide. The 62.5 was applied after placing a little bit of flexion on the distal femur to minimize notch. AP and chamfer cuts were made. This fit line to line medial to lateral. Tibia sized to a 67 placed at proper rotation and punched. We trialed with a 10 insert. The knee came out to full extension with a negative bounce but seemed a little bit tight medially with no play. At 90? of flexion the medial side was also a bit tight. There was mm to mm half plate laterally no play medially at 90?. I felt that we were in 1 degree of valgus and checked the alignment of the punched tibial tray. I elected to shave 1 mm of bone off the medial tibial plateau and this was carefully performed and the tibia punched and we made sure there was no rocking of the tibial tray. On read trialing now we had appropriate stability mediolaterally in all positions. The knee came out to full extension with negative bounce with 0.5 mm medial opening 1-2 lateral open. Appropriate anterior drawer stability in all positions. Posterior femoral osteophytes were removed at this time and we trialing give us the same parameters. Lug holes in the femur were drilled. Step drill was used to make multiple perforations in the tibial plateau and distal femur the bony surfaces thoroughly irrigated and dried. Using 2 batches of methylmethacrylate 1 with gentamicin powder the cement was mixed immediately applied the tibial component and then applied the femoral component. Cement was applied to the tibia pressurized and the 67 tibia fully seated. Cement was applied the femur and the femoral component fully seated the knee brought into extension with 11 mm 5 and 1 trial for cement pressurization the tourniquet released at 87 minutes. After cement hardening excess cement was sought for removed and hemostasis was achieved. We trialed with the 10 ASE insert trial had the same findings as above. The real 10 was placed after thorough irrigation with antibiotic solution and locked with a locking pin. Patellar tracking was perfect to 145?. Arthrotomy was closed with 2. Vicryl 1. Unidirectional barbed Stratafix suture and the split with 1. Vicryl. With arthrotomy closed
[2022-04-04] MEDS: fentaNYL CITRATE INJ (*CRX) 100 MCG/2 ML VIAL 25 MCG IV PUSH ×8 (10:40→11:10)
[2022-04-04] MEDS: HYDROmorphone HCL INJ (*CRX) 1 MG/ML SYR 0.5 MG IV PUSH ×4 (11:15→11:43)
[2022-04-04] MEDS: SODIUM CHLORIDE 0.9% IV 1,000 ML 125 ML IV CONT (12:20)
[2022-04-04] MEDS: ONDANSETRON INJ 4 MG/2 ML VIAL IV PUSH ×3 (12:20→22:34)
[2022-04-04] MEDS: oxyCODONE HCL (*CRX) 5 MG TAB IR PO ×3 (12:21→21:00)
--- NOTE | 2022-04-04 12:30 | ADMGEN ---
This patient, Jesika Maxwell, was admitted to 2 Medical Room 242-. Patient/family oriented to hospital policies and general routines including ID bracelet, bed and alarms, visiting hours, pain management, procedures, bathroom and other care routines, personal items, smoking policy, room service/diet, and visiting hours. Information on how to activate the Rapid Response Team has been discussed. Patient/Family are encouraged to report perceived risks to care and to ask questions if they do not understand what they are told or what they should do.
--- NOTE | 2022-04-04 13:12 | PCOTNOTE ---
Attempted to see pt. for occupational therapy evaluation. Pt. requested nap after having just participating in physical therapy and feeling nauseous
[2022-04-04] MEDS: SENNA/DOCUSATE SODIUM TABLET 2 TAB PO (16:37)
[2022-04-04] MEDS: FAMOTIDINE 20 MG TABLET PO (21:00)
[2022-04-04] MEDS: PRAVASTATIN SODIUM 20 MG TABLET 40 MG BY MOUTH (21:00)
[2022-04-05 03:30] VITALS: BP 135/60; PULSE 72; RESP 17; TEMP 36.8; O2SAT 99
[2022-04-05] MEDS: ACETAMINOPHEN 500 MG TABLET 1000 MG PO ×2 (05:22→11:45)
[2022-04-05 05:42] LABS: Basophils Percent Auto 0.2 % (0.2-1.2); Eosinophils Percent Auto 0.1 % (0-4.4); Hematocrit 37.6 % (37.0-47.0); Immature Granulocyte Absolute 0.08 K/mm3 (0.00-0.031); Immature Granulocyte Percent A 0.5 % (0-0.5); Lymphocytes Absolute Auto 1.91 K/mm3 (0.9-3.2); Lymphocytes Percent Auto 11.8 % (18.3-44.2); Mean Corpuscular HGB Conc 31.9 g/dl (32-36); Mean Corpuscular Hemoglobin 30.3 pg (26-34); Mean Corpuscular Volume 94.9 fl (80-100); Mean Platelet Volume 11.2 fl (7.4-10.4); Monocytes Absolute Auto 1.2 K/mm3 (0.1-0.6); Monocytes Percent Auto 7.6 % (2.6-8.5); Neutrophils Absolute Auto 12.9 K/mm3 (1.3-6.7); Neutrophils Percent Auto 79.8 % (45.5-73.1); Platelet Count Result 284 k/mm3 (150-375); Red Blood Count 3.96 M/mm3 (4.2-5.4); Red Cell Distribution Width 13.1 % (11.5-14.5); White Blood Count 16.2 K/mm3 (4.5-10.0)
[2022-04-05 06:02] LABS: Anion Gap 9 mmol/L (8-16); Blood Urea Nitrogen 10 mg/dL (7-17); Calcium 8.9 mg/dL (8.4-10.2); Carbon Dioxide 27 mmol/L (22-30); Chloride 102 mmol/L (98-107); Estimated CRCL calculation 52 ml/min; Estimated Glomerular Filt Rate > 60; Glucose 105 mg/dL (65-110); Potassium 3.9 mmol/L (3.4-5.0); Sodium 138 mmol/L (137-145)
--- NOTE | 2022-04-05 06:27 | PM.PNORT ---
Subjective Subjective Date/Time Seen: 04/05/22 06:27 Postop day 1 patient is alert. Afebrile vital signs are stable. She did have quite a bit of postop nausea last night. This has dissipated at this point. She was up walking with physical therapy and has been up to the restroom multiple times overnight uncomfortable. Pain overall is well controlled. She is not taking any narcotics at this point only Tylenol. Dressing is dry. Neurovascular she is intact. Morning labs are noted. We will plan to have patient work with therapy today and if she continues to do well we will plan on discharging her home this afternoon. Objective Data Vital Signs Vital Signs: Vital Signs - 24 hr 04/04/22 10:27 04/04/22 10:40 04/04/22 10:55 Temperature 36.9 C Pulse Rate 94 96 90 Respiratory Rate 18 16 12 Blood Pressure 139/74 157/83 H 130/78 Pulse Oximetry 99 99 99 Oxygen Delivery Simple Face Mask Simple Face Mask Room Air Oxygen Flow Rate 8 8 04/04/22 11:10 04/04/22 11:25 04/04/22 11:40 Temperature Pulse Rate 91 87 86 Respiratory Rate 14 14 16 Blood Pressure 156/72 H 139/67 137/62 Pulse Oximetry 100 100 96 Oxygen Delivery Room Air Room Air Room Air Oxygen Flow Rate 04/04/22 11:55 04/04/22 12:49 04/04/22 12:30 Temperature Pulse Rate 77 Respiratory Rate 14 Blood Pressure 134/75 Pulse Oximetry 94 Oxygen Delivery Room Air Room Air Room Air Oxygen Flow Rate 04/04/22 11:58 04/04/22 12:13 04/04/22 12:43 Temperature 36.1 C L 36.1 C L 36.0 C L Pulse Rate 96 82 86 Respiratory Rate 12 12 16 Blood Pressure 178/76 H 160/60 H 154/72 H Pulse Oximetry 96 91 97 Oxygen Delivery Oxygen Flow Rate 04/04/22 13:43 04/04/22 18:35 04/04/22 19:25 Temperature 36.0 C L 36.3 C L 36.6 C Pulse Rate 84 91 84 Respiratory Rate 16 16 17 Blood Pressure 156/78 H 177/90 H 156/72 H Pulse Oximetry 97 98 97 Oxygen Delivery Oxygen Flow Rate 04/04/22 23:41 04/05/22 03:30 Temperature 36.2 C L 36.8 C Pulse Rate 74 72 Respiratory Rate 17 17 Blood Pressure 131/56 L 135/60 Pulse Oximetry 97 99 Oxygen Delivery Oxygen Flow Rate Intake/Output Intake/Output: Intake & Output 04/02/22 04/03/22 04/04/22 04/05/22 23:59 23:59 23:59 23:59 Intake Total 1400 400 Balance 1400 400 Meds/Results Medications: Active Medications Generic Name Dose Route Start Last Admin Trade Name Freq PRN Reason Stop Dose Admin Acetaminophen 1,000 mg 04/04/22 11:58 04/05/22 05:22 Acetaminophen 500 Mg Tablet PO 1,000 mg Q6H GLENIS Administration Apixaban 2.5 mg 04/05/22 09:00 Apixaban 2.5 Mg Tablet PO 04/16/22 21:01 Q12HR GLENIS Celecoxib 100 mg 04/05/22 09:00 Celecoxib 100 Mg Capsule PO DAILY GLENIS Diphenhydramine HCl 25 mg 04/04/22 11:58 Diphenhydramine Hcl Inj 50 Mg/Ml Vial IV PUSH Q6H PRN Itching Famotidine 20 mg 04/04/22 21:00 04/04/22 21:00 Famotidine 20 Mg Tablet PO 20 mg Q12HR GLENIS Administration Cefazolin Sodium 1 gm in 50 mls @ 100 mls/hr 04/04/22 16:00 04/04/22 23:30 Ancef 1 Gm/D5w 50 Ml Pm IVPB 04/05/22 08:29 100 mls/hr Q8H GLENIS Administration Vancomycin HCl 1,000 mg in 250 mls @ 250 mls/hr 04/04/22 19:00 04/05/22 06:05 Vancomycin 1,000 Mg/D5w 250 Ml IVPB 04/05/22 07:59 250 mls/hr Q12H GLENIS Administration Naloxone HCl 0.1 mg 04/04/22 11:58 Naloxone Hcl 0.4 Mg/Ml Vial IV PUSH Q2M PRN Opiate Reversal Ondansetron HCl 4 mg 04/04/22 11:58 04/04/22 22:34 Ondansetron Inj 4 Mg/2 Ml Vial IV PUSH 4 mg Q4H PRN Administration Nausea And Vomiting Oxycodone HCl 5 mg 04/04/22 11:58 04/05/22 04:21 Oxycodone Hcl (*Crx) 5 Mg Tab Ir PO Not Given Q4H GLENIS Oxycodone HCl 5 mg 04/04/22 11:58 Oxycodone Hcl (*Crx) 5 Mg Tab Ir PO Q4HR PRN Moderate Pain (4-6) Polyethylene Glycol 17 gm 04/05/22 09:00 Polyethylene Glycol 3350 17 Gm Powd.Pack PO QAM [facility] Pravastatin Sodium 40 mg 08
--- NOTE | 2022-04-05 06:32 | PM.DS ---
DS: Admitting Diagnosis Discharge Date 04/05 Admitting Diagnosis Bilateral knee DJD DS: Discharge Diagnosis Discharge Diagnosis Plan 66-year-old female underwent left total knee arthroplasty on 04/04. She did have cortisone injection in the right knee done at same time. Underwent surgical procedure without any complications. Postoperatively she did have quite a bit and nausea the evening surgery. This did dissipate by the morning of postop day 1. Patient was up walking with physical therapy the day of surgery and was up to the restroom multiple times overnight as well. Overall doing very well. Her dressing is dry. She has a Mepilex over her knee. She is weight-bearing as tolerated. The morning of postop day 1 she was only taking Tylenol for pain. She is going to be getting her Celebrex 100 mg daily. She is also going to be on Pepcid 20 mg b.i.d. when she goes home due to previous gastritis issues. She is on Eliquis for DVT prophylaxis. She is going to take the Tylenol which she goes home, we did discuss narcotic use and she wishes to go home with oxycodone will take half tabs at a time to see if this helps control her symptoms without any nausea. She will also go home on Senokot and MiraLax. Patient was advised to keep leg elevated at home with her foot higher than her heart to prevent swelling in the knee in the leg. She was advised to do her exercises on a regular basis every day to prevent stiffness in the knee. She has outpatient therapy starting later this week. Patient was advise any questions or concerns she is to call the office otherwise we will see her at her appointed dates. DS: Summary Hospital Course Hospital Course: Stable Time Spent with Patient Time attestation: Total time spent providing and/or coordinating discharge services: DS: Data Data Completed and Pending Labs on day of discharge: Labs from last 24 hours 04/05/22 04/05/22 04/04/22 04:44 04:44 06:16 WBC 16.2 H RBC 3.96 L Hgb 12.0 D Hct 37.6 MCV 94.9 MCH 30.3 MCHC 31.9 L RDW 13.1 Plt Count 284 MPV 11.2 H Immature Gran % (Auto) 0.5 Neut % (Auto) 79.8 H Lymph % (Auto) 11.8 L [place] % (Auto) 7.6 Eos % (Auto) 0.1 Baso % (Auto) 0.2 Lymph # (Auto) 1.91 [place] # (Auto) 1.2 H Eos # (Auto) 0.0 Baso # (Auto) 0.0 Abs Immat Gran (auto) 0.08 H Absolute Neuts (auto) 12.9 H Absolute Nucleated RBC 0.0 Nucleated RBC % 0.0 Sodium 138 Potassium 3.9 Chloride 102 Carbon Dioxide 27 Anion Gap 9 BUN 10 Creatinine 0.80 Estim Creat Clear Calc 52 Estimated GFR > 60 Glucose 105 Calcium 8.9 Blood Type AB Negative Antibody Screen Negative Discharge Plan Discharge Patient Disposition: Home, Self-Care Discharge Instructions: MIGEL WORTHY M.D [facility], [address] [address] POST-OPERATIVE DISCHARGE INSTRUCTIONS TOTAL KNEE ARTHROPLASTY 1. When resting, lie on back with leg elevated above heart to minimize swelling. Significant swelling could indicate a blood clot and if this occurs call the office (or go to the ER) to have a venous ultrasound. Patient should be elevating the leg while either on the couch or in the bed on 3 pillows. No recliner so. 2. Do exercise 5 times a day. 3. Do not sit with leg down except for meals. Limit sitting in chair to 30 minutes at a time 4 times a day. 4. Wound Care: Nursing will give additional dressings at discharge. Patient to change dressing at home 1 week from surgery, then maintain until seen in office. 5. May shower with dressing in place. Stand Alone Forms: General Discharge Instructions Follow-up/Referrals: Migel Worthy MD [Physician] - Keep Reg. Scheduled Appt. Discharge Medications: New polyethylene glycol 3350 [Miralax] 17 gram Powder In Packet 17 g PO QAM Qty: 30 0RF sennosides-d
[2022-04-05] MEDS: CELECOXIB 100 MG CAPSULE PO (08:43)
[2022-04-05] MEDS: FAMOTIDINE 20 MG TABLET PO (08:43)
[2022-04-05] MEDS: APIXABAN 2.5 MG TABLET PO (08:43)
[2022-04-05] MEDS: SENNA/DOCUSATE SODIUM TABLET 2 TAB PO (08:43)
[2022-04-05] MEDS: polyethylene glycoL 3350 17 GM POWD.PACK PO (08:44)
[2022-04-05 10:00] VITALS: BP 140/67; PULSE 62; RESP 16; TEMP 36.6; O2SAT 99
[2022-04-05 14:10] VITALS: BP 130/72; PULSE 79; RESP 16; TEMP 37.1; O2SAT 97
--- NOTE | 2022-04-05 14:10 | WPDANESPN ---
Anes - Prog Note Post-Op Date/Time: 04/05/22 14:10 Cardiovascular status: normal Respiratory status: normal Airway patency: baseline Mental status: baseline Post-Op hydration status: normal Vital Signs: Last Vital Signs Temp 98 F 04/05/22 10:00 Pulse 62 04/05/22 10:00 Resp 16 04/05/22 10:00 BP 140/67 04/05/22 10:00 Pulse Ox 99 04/05/22 10:00 O2 Del Method Room Air 04/05/22 08:50 O2 Flow Rate 8 04/04/22 10:40 Pain Score (VAS): 09/06 I/O: Intake & Output 04/04/22 04/05/22 04/05/22 23:59 07:59 15:59 Intake Total 500 450 392 Balance 500 450 392 Laboratory Tests 04/05/22 04:44 04/05/22 04:44 04/05/22 04/05/22 04:44 04:44 WBC 16.2 H RBC 3.96 L Hgb 12.0 D Hct 37.6 MCV 94.9 MCH 30.3 MCHC 31.9 L RDW 13.1 Plt Count 284 MPV 11.2 H Immature Gran % (Auto) 0.5 Neut % (Auto) 79.8 H Lymph % (Auto) 11.8 L [place] % (Auto) 7.6 Eos % (Auto) 0.1 Baso % (Auto) 0.2 Lymph # (Auto) 1.91 [place] # (Auto) 1.2 H Eos # (Auto) 0.0 Baso # (Auto) 0.0 Abs Immat Gran (auto) 0.08 H Absolute Neuts (auto) 12.9 H Absolute Nucleated RBC 0.0 Nucleated RBC % 0.0 Sodium 138 Potassium 3.9 Chloride 102 Carbon Dioxide 27 Anion Gap 9 BUN 10 Creatinine 0.80 Estim Creat Clear Calc 52 Estimated GFR > 60 Glucose 105 Calcium 8.9 Post-procedural complaints: none Patient Feedback: Patient satisfied with anesthetic care.
== END 2022-04-05 14:50 | disposition home or self-care (01) ==
LOC: ANHSURGERY 05:57 → ANH2MED 12:01
PROVIDERS: Physician Assistant Surgical; PCP Internal Medicine Gastroenterology; Visit Provider Orthopaedic Surgery
PROC: (CPT 27447; principal; 2022-04-04 07:30)
DX: M17.0 Bilateral primary osteoarthritis of knee (principal); R11.0 Nausea; E78.5 Hyperlipidemia, unspecified; I10 Essential (primary) hypertension; Z87.891 Personal history of nicotine dependence; F12.90 Cannabis use, unspecified, uncomplicated
CPT/HCPCS: 27447; 20610; 36415; 73560; 80048; 80307; 82040; 83036; 85025; 86850; 86900; 86901; 87070; 93005; 97110; 97116; 97161; 97165; 97530; 97535; A9270; C1713; C1776; J0171; J0690; J1040; J1100; J1170; J1885; J2250; J2270; J2405; J2704; J2710; J2795; J3010; J3370; J7030; J7120

== ENCOUNTER 2022-08-09 09:58 | Outpatient (CLI) | payer MEDICARE, SELFPAY ==
[2022-08-09 11:01] LABS: Basophils Absolute Auto 0.1 K/mm3 (0.0-0.1); Basophils Percent Auto 0.9 % (0.2-1.2); Eosinophils Absolute Auto 0.2 K/mm3 (0-0.3); Eosinophils Percent Auto 2.3 % (0-4.4); Hematocrit 46.1 % (37.0-47.0); Hemoglobin 14.8 g/dL (12.0-15.0); Immature Granulocyte Absolute 0.02 K/mm3 (0.00-0.031); Immature Granulocyte Percent A 0.3 % (0-0.5); Lymphocytes Absolute Auto 2.81 K/mm3 (0.9-3.2); Lymphocytes Percent Auto 36.6 % (18.3-44.2); Mean Corpuscular HGB Conc 32.1 g/dl (32-36); Mean Corpuscular Hemoglobin 29.8 pg (26-34); Mean Corpuscular Volume 92.9 fl (80-100); Mean Platelet Volume 10.2 fl (7.4-10.4); Monocytes Absolute Auto 0.4 K/mm3 (0.1-0.6); Monocytes Percent Auto 4.9 % (2.6-8.5); Neutrophils Absolute Auto 4.2 K/mm3 (1.3-6.7); Platelet Count Result 359 k/mm3 (150-375); Red Blood Count 4.96 M/mm3 (4.2-5.4); Red Cell Distribution Width 13.2 % (11.5-14.5); White Blood Count 7.7 K/mm3 (4.5-10.0)
[2022-08-09 11:11] LABS: Albumin Level 4.7 g/dL (3.5-5.1); Anion Gap 8 mmol/L (8-16); Blood Urea Nitrogen 19 mg/dL (7-17); Calcium 9.6 mg/dL (8.4-10.2); Carbon Dioxide 30 mmol/L (22-30); Chloride 100 mmol/L (98-107); Estimated Glomerular Filt Rate > 60; Glucose 119 mg/dL (65-110); Sodium 138 mmol/L (137-145)
[2022-08-09 11:14] LABS: Urine Cotinine NEGATIVE
[2022-08-09 11:30] LABS: Hemoglobin A1C 5.8 % (<5.7)
== END 2022-08-09 09:59 | disposition home or self-care (01) ==
PROVIDERS: PCP Internal Medicine Gastroenterology; Visit Provider Orthopaedic Surgery
DX: M17.11 Unilateral primary osteoarthritis, right knee (principal); Z01.818 Encounter for other preprocedural examination
CPT/HCPCS: 80048; 80307; 82040; 83036; 85025; 87081

== ENCOUNTER 2022-08-24 01:16 | Day surgery (SDC) | payer MEDICARE, SELFPAY ==
--- NOTE | 2022-08-09 10:06 | PC.NURSE ---
Report to the Outpatient Waiting Room, entrance under the green pavilion located off [facility], at time __10:00AM on date ___08/24/22___. Planned Procedure Time: __12:00PM . Time changes happen often and if your time is changed the preop area will call you the afternoon before. - You and your visitor will be asked to self-screen and do not enter if you have any COVID symptoms. - Only one visitor is requested with a max of two and NO children visitors are allowed at this time. - The patient visitor may be requested to leave or wait in car when not with patient due to distancing restrictions. - A mask is optional within the hospital. Patients may have clear liquids (water, carbonated beverages, clear teas, apple juice) until 3 hours prior to surgery with a maximum of 20 ounces. - No food from midnight until time of surgery Take the following medications with a SIP of water the morning of surgery: __NONE Medications to discontinue per physician ____HOLD ALL VITAMINS/SUPPLEMENTS 3 DAYS PRE-OP Date to take last dose____08/20/22 Please no make-up, nail dutch, hairspray, perfume, deodorant, or body powder the day of surgery. No jewelry (including any body piercings) or valuables the day of surgery, leave them at home. Please take a shower or bath the night before, or the morning of, surgery with an antibacterial soap. Wear comfortable, loose fitting clothing. Children are encouraged to wear pajamas. - Jewelry must be removed prior to entering the operating room. Rings and piercings that are not removed may be cut off. - The hospital will not accept responsibility for valuables. - Please leave all valuables, including medications, at home the day of surgery. If you are going home after surgery, a licensed regional company hazmat tanker driver must drive you home. - NO public transportation without another adult if you receive anesthesia. - We recommend that an adult stay with you for 24 hours following discharge. - We also recommend that you do not drive, make important decision, drink alcoholic beverages, or take any drugs that were not prescribed by your health care provider for at least 24 hours after your discharge time. Follow any additional instructions given to you from your surgeon. If you or anyone in your household have experienced Covid symptoms in the past week, please notify your surgeon or the nurse liaison at the phone number below for possible testing. Telephone instructions given to _PATIENT and asked if any additional questions and then verbalized understanding. Patient advised to call surgeon office or pre surgery nurse liaison [phone] if any additional questions.
[2022-08-09 10:14] VITALS: BP 127/73; PULSE 88; RESP 16; TEMP 36.4; O2SAT 98; BMI 25.7
[2022-08-24] VITALS (13 sets, daily range): BP systolic 129–169; BP diastolic 69–91; PULSE 76–99; RESP 12–18; TEMP 36.3–37.4; O2SAT 93–100
--- NOTE | ~2022-08-24 | XR_ITS ---
EXAMINATION: XR knee RT 2V DATE: 08/24/2022 15:52 INDICATION: Postoperative evaluation following right total knee arthroplasty. TECHNIQUE: Anteroposterior and lateral views of the right knee were obtained. COMPARISON: 08/25/2021 FINDINGS: Right total knee arthroplasty without patellar resurfacing appears well seated and in near anatomic a lignment. No fractures identified. Expected postoperative subcutaneous and intra-articular gas. IMPRESSION: 1. Right total knee arthroplasty, negative for postoperative purposes. Reviewed, dictated and finalized at location A. [facility] OPERATOR
--- NOTE | 2022-08-24 07:56 | PM.IMHP ---
H&P: HPI History of Present Illness Date/Time: 08/24/22 07:56 Chief Complaint: Right knee DJD Narrative: 66-year-old female who presents today for a right total knee arthroplasty. She underwent left total knee arthroplasty in March of this year. She an uneventful recovery and did well. She has severe medial compartment osteoarthritis in the right knee. She did have a cortisone injection at the time of her surgery on 04/04. Patient feels this point she is ready proceed with right total knee arthroplasty. Review of Systems Review of Systems: All systems reviewed & are unremarkable except as noted in HPI and below PMFSH Past Medical History Medical History (Updated 08/24/22 @ 10:35 by Jake Nelson DO) GERD (gastroesophageal reflux disease) Hyperlipidemia Hypertension no meds PONV (postoperative nausea and vomiting) Surgical History Surgical History History of back surgery History of Family History Family History Father Myocardial infarct Skin cancer Mother Cerebrovascular accident Sibling Pulmonary emboli Social History Social History Smoking packs per day: 1.5 Smoking cigarettes per day: 30.0 Years smoked: 5 Smoking pack-years: 7.50 Smoking status: Former smoker Tobacco type: cigarettes Second hand tobacco smoke exposure: No Smoking end date: 02/25/97 Additional smoking assessment comments: PT DENIES ALL FORMS OF TOBACCO USE Alcohol intake: former Substance use: never Substance use type: marijuana Other substance usage details: [address] WEEKLY Living arrangements: with family Additional living arrangements comments: GRANDAUGHTER AND GREAT GRANDCHILDREN Spiritual care concerns: No Meds Home Medications and Allergies Home Medications Medication Instructions Recorded Confirmed Type calcium citrate 315 mg 1 tablet PO DAILY 03/08/22 08/24/22 History calcium-vitamin D3 6.25 mcg (250 unit) tablet (Citracal + Vitamin D Maximum) melatonin 10 mg tablet 10 mg PO HS PRN Insomnia 03/08/22 08/24/22 History [id number] 80 mcg-lutein 1 tablet PO QAM 03/08/22 08/24/22 History 166.7 mcg-herbal 66.7 mg chew tablet (Alive Premium Women's 50 Plus) zolpidem 5 mg tablet 5 mg PO HS PRN Sleep 03/08/22 08/24/22 History Sinupret 1 tab-cap PO TID PRN Congestion 08/09/22 08/09/22 History acetaminophen 500 mg tablet 1,000 mg PO Q6H PRN Pain 08/09/22 08/24/22 History diphenhydramine 25 1 tablet PO HS PRN Insomnia 08/09/22 08/24/22 History mg-acetaminophen 500 mg tablet (Tylenol PM Extra Strength) pravastatin 40 mg tablet 40 mg PO DAILY 08/09/22 08/24/22 History tramadol 50 mg tablet 1 mg PO Q6-8H PRN Pain 08/09/22 08/24/22 History Allergies Allergy/AdvReac Type Severity Reaction Status Date / Time No Known Allergies Allergy Unknown NONE Verified 08/24/22 09:50 Exam Narrative: 66-year-old female alert pleasant. She is 5 ft 4 167 lb. Her right knee range of motion is from 0-140 degrees. Varus alignment. Normal stability. Trace effusion. Moderate medial joint line tenderness. Hip range of motion is full without discomfort, negative Stinchfield maneuver. 2+ dorsalis pedis pulse. No edema in lower extremities. No numbness or tingling in the lower extremities. Resp: Auscultation: clear to auscultation bilaterally Cardio: Rate: regular rate Rhythm: regular rhythm Assessment and Plan Assessment and plan (1) Right knee DJD: Code(s): M17.11 - Unilateral primary osteoarthritis, right knee Status: Acute Plan 66-year-old female who has severe medial compartment osteoarthritis right knee. She did very well with her recovery the left knee following total knee arthroplasty in March of this year. She feels she has recovered well and is
[2022-08-24] MEDS: ACETAMINOPHEN 500 MG TABLET 1000 MG PO ×2 (09:58→17:50)
[2022-08-24] MEDS: LACTATED RINGERS 1,000 ML 30 ML IV CONT ×2 (10:07→15:23)
--- NOTE | 2022-08-24 10:30 | WPDANESEPPF ---
Anes - Initial Pre Proc Eval Procedure: Operation Date: 08/24/22 12:00 Proposed Procedures p Right Total Knee Arthroplasty - Migel Worthy MD Date/Time: 08/24/22 10:30 Surgeon: Migel Worthy MD Pre Op Diagnosis: O.A. Right Knee Patient Data Age: 66 Gender: F Height: 1.65 m Weight: 69.2 kg Last Vital Signs Temp 36.6 C 08/24/22 10:18 Pulse 87 08/24/22 10:18 Resp 16 08/24/22 10:18 BP 142/75 H 08/24/22 10:18 Pulse Ox 98 08/24/22 10:18 O2 Del Method Room Air 08/24/22 10:18 Allergies Allergy/AdvReac Type Severity Reaction Status Date / Time No Known Allergies Allergy Unknown NONE Verified 08/24/22 09:50 Home Medications Medication Instructions Recorded Confirmed Type calcium citrate 315 mg 1 tablet PO DAILY 03/08/22 08/24/22 History calcium-vitamin D3 6.25 mcg (250 unit) tablet (Citracal + Vitamin D Maximum) melatonin 10 mg tablet 10 mg PO HS PRN Insomnia 03/08/22 08/24/22 History dlwwsxlz-[id number] 80 mcg-lutein 1 tablet PO QAM 03/08/22 08/24/22 History 166.7 mcg-herbal 66.7 mg chew tablet (Alive Premium Women's 50 Plus) zolpidem 5 mg tablet 5 mg PO HS PRN Sleep 03/08/22 08/24/22 History Sinupret 1 tab-cap PO TID PRN Congestion 08/09/22 08/09/22 History acetaminophen 500 mg tablet 1,000 mg PO Q6H PRN Pain 08/09/22 08/24/22 History diphenhydramine 25 1 tablet PO HS PRN Insomnia 08/09/22 08/24/22 History mg-acetaminophen 500 mg tablet (Tylenol PM Extra Strength) pravastatin 40 mg tablet 40 mg PO DAILY 08/09/22 08/24/22 History tramadol 50 mg tablet 1 mg PO Q6-8H PRN Pain 08/09/22 08/24/22 History Patient hx anesthesia problems: post op nausea/vomiting Family hx anesthesia problems: none Results Review: All pre-operative results and documents have been reviewed as part of the pre-operative evaluation. [facility] Past Medical History Medical History (Updated 08/24/22 @ 10:35 by Jake Nelson DO) GERD (gastroesophageal reflux disease) Hyperlipidemia Hypertension no meds PONV (postoperative nausea and vomiting) Surgical History Surgical History History of back surgery History of Family History Family History Father Myocardial infarct Skin cancer Mother Cerebrovascular accident Sibling Pulmonary emboli Social History Social History Smoking packs per day: 1.5 Smoking cigarettes per day: 30.0 Years smoked: 5 Smoking pack-years: 7.50 Smoking status: Former smoker Tobacco type: cigarettes Second hand tobacco smoke exposure: No Smoking end date: 02/25/97 Additional smoking assessment comments: PT DENIES ALL FORMS OF TOBACCO USE Alcohol intake: former Substance use: never Substance use type: marijuana Other substance usage details: [address] WEEKLY Living arrangements: with family Additional living arrangements comments: GRANDAUGHTER AND GREAT GRANDCHILDREN Spiritual care concerns: No Anes - Eval Final PreProcedure Day of Procedure 08/24/22 10:30 Patient weight: overweight Heart: regular rate and rhythm Lungs: clear to auscultation Airway: Mallampati scale class II Neurological: alert and oriented Last oral intake: >/= 8 hours ASA classification: II Emergent: no Anesthetic plan: proceed Anesthesia type and monitoring: general ETT and standard monitoring Results Review: All pre-operative results and documents have been reviewed as part of the pre-operative evaluation. Informed Consent: The patient's anesthetic plan and its attendant risks and benefits were discussed with the patient/family/POA. Questions were solicited and answers provided to the satisfaction of the patient/family/POA.
[2022-08-24] MEDS: TRANEXAMIC ACID 1,000MG/ISO100 1,000 MG/100 ML BAG 200 MG IVPB (10:34)
[2022-08-24] MEDS: SCOPOLAMINE 1.5 MG PATCH TRANSDERM (10:48)
--- NOTE | 2022-08-24 11:57 | WPDHPUPDATE1 ---
History and Physical Update Update Date/Time: 08/24/22 11:57 History and Physical has been reviewed, including an updated exam of the patient. There are NO changes in the patient's condition. Risks, benefits, and alternatives have been discussed and questions answered. Patient agrees to proceed with procedure.
[2022-08-24] MEDS: ceFAZolin 2 GM/D5W 50 ML 2 GM/50 ML BAG IVPB (12:22)
[2022-08-24] MEDS: ceFAZolin SODIUM 1 GM VIAL 3 GM (13:12)
[2022-08-24] MEDS: GENTAMICIN BONE CEMENT REFOBACIN 1 EACH TOPICAL (13:15)
[2022-08-24] MEDS: ceFAZolin SODIUM 1 GM VIAL 2 GM IV PUSH (14:17)
[2022-08-24] MEDS: KETOROLAC 15 MG/ML VIAL (*BKC) IV PUSH ×2 (14:19→17:49)
[2022-08-24] MEDS: TRANEXAMIC ACID 1,000 MG/10 ML AMPUL 1000 MG IV PUSH (14:20)
--- NOTE | 2022-08-24 15:17 | W.PM.PROC2 ---
Procedure Note - Detailed Date of Procedure 08/24/22 Pre-op Diagnosis O.A. Right Knee Post-op Diagnosis Same Procedure Performed Right total knee replacement Surgeon Migel Worthy MD Anesthesia General Description of Procedure Patient was brought to the operating room and general anesthesia was administered. She received 2 g Ancef weight based vancomycin 1 g tranexamic acid preoperatively in the right leg prepped draped usual fashion. Limb was exsanguinated tourniquet elevated to 275 mmHg. A an 8 in longitudinal midline incision was used and a vastus medialis splitting approach utilized splitting the vastus medialis at the superior pole of patella. Infrapatellar and suprapatellar fat pads were excised a quadriceps synovectomy carried out. The patella had essentially normal cartilage. There was some small spurs medially that r were removed. I thought it was most appropriate for non resurfacing. Minimal lateral facetectomy was performed. A guide ysabel was inserted down femoral canal after aspiration of canal contents using the 5 degree valgus cutting bushing 8 mm of bone removed from the distal femur. This removed 8 laterally but because of wear medially removed only 7 medially. She balanced with only 8 mm of bone removed from her other knee this is why we chose a conservative route. Next the tibial plateau was cut perpendicular to the axis of the tibia removing about 3 or 4 mm of bone the low point of the medial tibial plateau. Appropriate alignment was confirmed. Meniscal remnants were excised and the PCL recessed. Flexion gap measured 8 mm medially and 11 mm laterally. The femoral sizing guide was applied at 4? of external rotation and posterior referencing pinholes were placed. The 65 vanguard cutting block was appropriate the 62.5 was going to notch. AP and chamfer cuts were made for the 65 the 65 fit line to line medial to lateral and anterior to posterior. The knee came out to full extension with a 10 CR insert with good balance and gaps were appropriate at 90? as well with 1-2 of medial opening 1 of lateral opening. The tibia was sized to a vanguard 71 which fit line to line anteromedial to posterolateral and this was punched and we trialed with 10 insert. There was gravity flexion 140 and appropriate anterior drawer stability throughout. The knee had a fairly positive bounce with no medial play and valgus stress 2 mm laterally in extension. Therefore an additional 1 mm of bone was removed from the distal femur osteophytes on femur were removed. No posterior capsular release was performed. On read trialing the knee now came out to full extension with negative bounce 1 mm medial opening 2-3 lateral opening appropriate stability throughout range of motion. Lug holes were drilled for the femur. Step drill was used to make multiple perforations in the tibial plateau and distal femur the bony surfaces thoroughly irrigated and dried and 2 batches of methylmethacrylate were mixed from the gentamicin powder cement applied the 71 tibial component the 65 femoral component cement applied the tibia pressurized tibial component fully seated cement applied to the femur femoral component fully seated with an 11 mm 5 1 insert for for pressurization. Tourniquet was released at 84 minutes. Hemostasis was achieved. EBL was 150. After cement hardening excess cement was sought for removed and we trialed and the 10 was again appropriate. The real 10 was placed without difficulty locking pin placed range of motion stability patellar tracking reconfirmed. Arthrotomy was closed with 2. Vicryl Plus 1. Unidirectional barbed Stratafix suture and 1. Vicryl running in the split. Skin closed with 2 subcutaneous Vicryl 3-0 subcuticular Monocryl and glue. 2 g of Ancef an additional 1 g of tranexamic acid were given time wound closure. No known complications. She was transferred postop recovery room in stable condition.
[2022-08-24] MEDS: fentaNYL CITRATE INJ (*CRX) 100 MCG/2 ML VIAL 25 MCG IV PUSH ×4 (15:54→16:42)
--- NOTE | 2022-08-24 16:58 | ADMGEN ---
This patient, Jesika Maxwell, was admitted to [facility] Surg Room 307-01. Patient/family oriented to hospital policies and general routines including ID bracelet, bed and alarms, visiting hours, pain management, procedures, bathroom and other care routines, personal items, smoking policy, room service/diet, and visiting hours. Information on how to activate the Rapid Response Team has been discussed. Patient/Family are encouraged to report perceived risks to care and to ask questions if they do not understand what they are told or what they should do.
[2022-08-24] MEDS: SODIUM CHLORIDE 0.9% IV 1,000 ML 125 ML IV CONT (17:46)
[2022-08-24] MEDS: SENNA/DOCUSATE SODIUM TABLET 2 TAB PO (17:50)
[2022-08-24] MEDS: oxyCODONE HCL (*CRX) 5 MG TAB IR PO ×2 (17:50→21:19)
[2022-08-25] MEDS: KETOROLAC 15 MG/ML VIAL (*BKC) IV PUSH (00:57)
[2022-08-25] MEDS: ACETAMINOPHEN 500 MG TABLET 1000 MG PO ×2 (00:58→06:29)
[2022-08-25] MEDS: oxyCODONE HCL (*CRX) 5 MG TAB IR PO ×4 (00:59→13:21)
[2022-08-25 02:06] VITALS: BP 114/56; PULSE 73; RESP 14; TEMP 36.7; O2SAT 94
[2022-08-25 05:56] VITALS: BP 112/56; PULSE 72; RESP 14; TEMP 36.1; O2SAT 91
[2022-08-25 07:05] LABS: Basophils Absolute Auto 0.1 K/mm3 (0.0-0.1); Basophils Percent Auto 0.3 % (0.2-1.2); Hematocrit 33.4 % (37.0-47.0); Hemoglobin 10.9 g/dL (12.0-15.0); Immature Granulocyte Absolute 0.08 K/mm3 (0.00-0.031); Immature Granulocyte Percent A 0.4 % (0-0.5); Lymphocytes Absolute Auto 1.87 K/mm3 (0.9-3.2); Lymphocytes Percent Auto 9.8 % (18.3-44.2); Mean Corpuscular HGB Conc 32.6 g/dl (32-36); Mean Corpuscular Hemoglobin 30.5 pg (26-34); Mean Corpuscular Volume 93.6 fl (80-100); Mean Platelet Volume 10.3 fl (7.4-10.4); Monocytes Absolute Auto 1.1 K/mm3 (0.1-0.6); Monocytes Percent Auto 5.9 % (2.6-8.5); Neutrophils Absolute Auto 15.9 K/mm3 (1.3-6.7); Neutrophils Percent Auto 83.6 % (45.5-73.1); Platelet Count Result 320 k/mm3 (150-375); Red Blood Count 3.57 M/mm3 (4.2-5.4); Red Cell Distribution Width 13.4 % (11.5-14.5); White Blood Count 19.1 K/mm3 (4.5-10.0)
[2022-08-25 07:08] LABS: Anion Gap 5 mmol/L (8-16); Blood Urea Nitrogen 12 mg/dL (7-17); Calcium 8.3 mg/dL (8.4-10.2); Carbon Dioxide 28 mmol/L (22-30); Chloride 104 mmol/L (98-107); Estimated CRCL calculation 53 ml/min; Estimated Glomerular Filt Rate > 60; Glucose 136 mg/dL (65-110); Sodium 137 mmol/L (137-145)
--- NOTE | 2022-08-25 07:13 | PM.PNORT ---
Subjective Subjective Date/Time Seen: 08/25/22 07:13 Postop day 1 patient is alert. She has been afebrile vital signs are stable. Pain is well controlled. Dressing is intact and dry. Neurovascularly she is intact. She was up to restroom times overnight. She had some slight nausea, but no emesis. Overall she is comfortable and doing well. She will work with therapy this morning and then plan on discharging her home once her IV antibiotics have been completed Objective Data Vital Signs Vital Signs: Vital Signs - 24 hr 08/24/22 10:18 08/24/22 15:23 08/24/22 15:30 Temperature 36.6 C 37.4 C Pulse Rate 87 93 91 Respiratory Rate 16 16 12 Blood Pressure 142/75 H 149/72 H 137/88 Pulse Oximetry 98 98 99 Oxygen Delivery Room Air Simple Face Mask Simple Face Mask Oxygen Flow Rate 10 10 08/24/22 15:45 08/24/22 16:00 08/24/22 16:15 Temperature Pulse Rate 83 83 81 Respiratory Rate 14 12 14 Blood Pressure 146/88 H 146/88 H 143/75 H Pulse Oximetry 100 100 96 Oxygen Delivery Simple Face Mask Room Air Room Air Oxygen Flow Rate 10 08/24/22 16:30 08/24/22 16:41 08/24/22 17:00 Temperature 36.8 C Pulse Rate 82 88 99 Respiratory Rate 17 12 18 Blood Pressure 140/72 146/77 H 169/79 H Pulse Oximetry 96 97 95 Oxygen Delivery Room Air Room Air Oxygen Flow Rate 08/24/22 17:15 08/24/22 17:45 08/24/22 18:45 Temperature 36.7 C 36.7 C 36.8 C Pulse Rate 89 94 76 Respiratory Rate 16 16 16 Blood Pressure 154/85 H 162/91 H 140/72 Pulse Oximetry 93 97 96 Oxygen Delivery Oxygen Flow Rate 08/24/22 22:28 08/25/22 02:06 08/25/22 05:56 Temperature 36.3 C L 36.7 C 36.1 C L Pulse Rate 81 73 72 Respiratory Rate 14 14 14 Blood Pressure 129/69 114/56 L 112/56 L Pulse Oximetry 95 94 91 Oxygen Delivery Oxygen Flow Rate Intake/Output Intake/Output: Intake & Output 12/26/22 12/27/22 12/28/22 12/29/22 23:59 23:59 23:59 23:59 Intake Total 1150 Balance 1150 Meds/Results Medications: Active Medications Generic Name Dose Route Start Last Admin Trade Name Freq PRN Reason Stop Dose Admin Acetaminophen 1,000 mg 08/24/22 18:00 08/25/22 06:29 Acetaminophen 500 Mg Tablet PO 1,000 mg Q6HR GLENIS Administration Apixaban 2.5 mg 08/25/22 09:00 Apixaban 2.5 Mg Tablet PO Q12HR GLENIS Celecoxib 200 mg 08/25/22 08:00 Celecoxib 200 Mg Capsule PO DAILY@0800 GLENIS Cefazolin Sodium 1 gm in 50 mls @ 100 mls/hr 08/24/22 20:00 08/25/22 05:09 Ancef 1 Gm/D5w 50 Ml Pm IVPB 08/25/22 12:29 100 mls/hr Q8H GLENIS Administration Vancomycin HCl 1,000 mg in 250 mls @ 250 mls/hr 08/24/22 22:00 08/24/22 21:19 Vancomycin 1,000 Mg/D5w 250 Ml IVPB 08/25/22 10:59 250 mls/hr Q12H GLENIS Administration Melatonin 10 mg 08/24/22 16:43 Melatonin 5 Mg Tablet PO HS PRN Insomnia Miscellaneous Information 0 each 08/24/22 00:01 Tylenol Pm Order Would Put Patient Over 4g Tylenol Per 24 Hour Limit. Please Clarify XX 09/23/22 00:00 CLARIFY GLENIS Morphine Sulfate 2 mg 08/24/22 16:43 Morphine Sulfate (*Crx) 2 Mg/Ml Inj IV PUSH Q1H PRN Pain Rated 7-10 Naloxone HCl 0.1 mg 08/24/22 16:43 Naloxone Hcl 0.4 Mg/Ml Vial IV PUSH Q2M PRN Opiate Reversal Non-Formulary Medication 1 tablet 08/24/22 16:43 Diphenhydramine-Acetaminophen [Tylenol Pm Extra Strength] PO HS PRN Insomnia Oxycodone HCl 5 mg 08/24/22 17:00 08/25/22 05:06 Oxycodone Hcl (*Crx) 5 Mg Tab Ir PO 5 mg Q4HR GLENIS Administration Oxycodone HCl 5 mg 08/24/22 16:43 Oxycodone Hcl (*Crx) 5 Mg Tab Ir PO Q4H PRN Pain Rated 4-10 Polyethylene Glycol 17 gm 08/25/22 09:00 Polyethylene Glycol 3350 17 Gm Powd.Pack PO QAM [facility] Pravastatin Sodium 40 mg 08/25/22 09:00 Pravastatin Sodium 20 Mg Tablet PO DAILY [facility] Senna/Docusate Sodium 2 tab 08/24/22 17:00 08/24/22 17:50 Senna/Docusate Sodium Tablet PO 2 tab BID [facility] A
--- NOTE | 2022-08-25 07:17 | PM.DS ---
DS: Admitting Diagnosis Discharge Date 08/25 Admitting Diagnosis right knee DJD DS: Discharge Diagnosis Discharge Diagnosis (1) Right knee DJD: Code(s): M17.11 - Unilateral primary osteoarthritis, right knee Status: Acute DS: Summary Hospital Course Hospital Course: 66-year-old female who underwent right total knee arthroplasty on 08/24. Underwent procedure without complications. Postoperatively she has been afebrile vital signs stable. Dressing is dry and intact. She was up multiple times overnight to the restroom. Pain is well controlled with scheduled Tylenol as well as oxycodone 5 mg and Celebrex 200 mg once a day. She is on Eliquis for DVT prophylaxis. Postop day we 1 labs were all stable. Patient states she is doing well. She had her left knee replaced in March of this year so she is very well aware of recovery. She will be discharged home on 08/25. She is advised to keep leg elevated home prevent swelling but do her exercises on hourly basis. She has outpatient therapy starting next week. Patient will also go home on Senokot MiraLax for constipation. She was advised any questions or concerns she is to call the office otherwise we will see her at her appointed dates. Time Spent with Patient Time attestation: Total time spent providing and/or coordinating discharge services: DS: Data Data Completed and Pending Labs on day of discharge: Labs from last 24 hours 08/25/22 08/25/22 08/24/22 06:23 06:23 09:54 WBC 19.1 H RBC 3.57 L Hgb 10.9 L D Hct 33.4 L MCV 93.6 MCH 30.5 MCHC 32.6 RDW 13.4 Plt Count 320 MPV 10.3 Immature Gran % (Auto) 0.4 Neut % (Auto) 83.6 H Lymph % (Auto) 9.8 L [place] % (Auto) 5.9 Eos % (Auto) 0.0 Baso % (Auto) 0.3 Lymph # (Auto) 1.87 [place] # (Auto) 1.1 H Eos # (Auto) 0.0 Baso # (Auto) 0.1 Abs Immat Gran (auto) 0.08 H Absolute Neuts (auto) 15.9 H Absolute Nucleated RBC 0.0 Nucleated RBC % 0.0 Sodium 137 Potassium 4.0 Chloride 104 Carbon Dioxide 28 Anion Gap 5 L BUN 12 D Creatinine 0.80 Estim Creat Clear Calc 53 Estimated GFR > 60 Glucose 136 H Calcium 8.3 L Blood Type AB Negative Antibody Screen Negative Discharge Plan Discharge Patient Disposition: Home, Self-Care Discharge Instructions: Remove the Scopolamine patch that was placed behind your left ear in 72 hours or less. Wash your hands after touching. OMSANY POOL M.D [facility], [place] [id number] [place] [id number] POST-OPERATIVE DISCHARGE INSTRUCTIONS TOTAL KNEE ARTHROPLASTY 1. When resting, lie on back with leg elevated above heart to minimize swelling. Significant swelling could indicate a blood clot and if this occurs call the office (or go to the ER) to have a venous ultrasound. 2. Do exercise 5 times a day. 3. Do not sit with leg down except for meals. 4. Wound Care: Nursing will give additional dressings at discharge. Patient to change dressing at home 1 week from surgery, then maintain until seen in office. 5. May shower with dressing in place. 6. Follow weight bearing status instructions. IMPORTANT: Remember not to sit in the chair for more than 30 minutes at a time. As a rule, during the first 14 days after surgery, only sit in the chair to work on the chair knee bending stretch exercise, for meals or for use of the restroom. Sitting in the chair promotes significant swelling in the knee and leg which will make the knee stiff and more painful and which simulates having a blood clot in the veins of the leg. If this type of significant diffuse swelling occurs, an ultrasound at the hospital will be necessary to rule out a blood clot. Be up walking around with the walker for a few minutes every hour while awake and then rest laying on your back on the couch or in bed with your leg elevated on cushions or pi
[2022-08-25] MEDS: polyethylene glycoL 3350 17 GM POWD.PACK PO (09:00)
[2022-08-25] MEDS: APIXABAN 2.5 MG TABLET PO (09:01)
[2022-08-25] MEDS: CELECOXIB 200 MG CAPSULE PO (09:01)
[2022-08-25] MEDS: SENNA/DOCUSATE SODIUM TABLET 2 TAB PO (09:01)
[2022-08-25] MEDS: PRAVASTATIN SODIUM 20 MG TABLET 40 MG PO (09:01)
[2022-08-25 10:25] VITALS: O2SAT 91
--- NOTE | 2022-08-25 12:27 | WPDANESPN ---
Anes - Prog Note Post-Op Date/Time: 08/25/22 12:27 Vital Signs: Last Vital Signs Temp 36.1 C L 08/25/22 05:56 Pulse 72 08/25/22 05:56 Resp 14 08/25/22 05:56 BP 112/56 L 08/25/22 05:56 Pulse Ox 91 08/25/22 10:25 O2 Del Method Room Air 08/25/22 10:25 O2 Flow Rate 10 08/24/22 15:45 Pain Score (VAS): 2 I/O: Intake & Output 08/24/22 08/25/22 08/25/22 23:59 07:59 15:59 Intake Total 1000 50 240 Balance 1000 50 240 Laboratory Tests 08/25/22 06:23 08/25/22 06:23 08/25/22 08/25/22 06:23 06:23 WBC 19.1 H RBC 3.57 L Hgb 10.9 L D Hct 33.4 L MCV 93.6 MCH 30.5 MCHC 32.6 RDW 13.4 Plt Count 320 MPV 10.3 Immature Gran % (Auto) 0.4 Neut % (Auto) 83.6 H Lymph % (Auto) 9.8 L [place] % (Auto) 5.9 Eos % (Auto) 0.0 Baso % (Auto) 0.3 Lymph # (Auto) 1.87 [place] # (Auto) 1.1 H Eos # (Auto) 0.0 Baso # (Auto) 0.1 Abs Immat Gran (auto) 0.08 H Absolute Neuts (auto) 15.9 H Absolute Nucleated RBC 0.0 Nucleated RBC % 0.0 Sodium 137 Potassium 4.0 Chloride 104 Carbon Dioxide 28 Anion Gap 5 L BUN 12 D Creatinine 0.80 Estim Creat Clear Calc 53 Estimated GFR > 60 Glucose 136 H Calcium 8.3 L Patient Feedback: Patient satisfied with anesthetic care.
== END 2022-08-25 13:20 | disposition home or self-care (01) ==
LOC: ANHSURGERY 10:49 → ANH3MEDSUR 17:12
PROVIDERS: PCP Internal Medicine Gastroenterology; Visit Provider Orthopaedic Surgery
PROC: (CPT 27447; principal; 2022-08-24 12:00)
DX: M17.11 Unilateral primary osteoarthritis, right knee (principal); I10 Essential (primary) hypertension; E78.5 Hyperlipidemia, unspecified; K21.9 Gastro-esophageal reflux disease without esophagitis; Z87.891 Personal history of nicotine dependence; F12.90 Cannabis use, unspecified, uncomplicated
CPT/HCPCS: 27447; 36415; 73560; 80048; 80307; 82040; 83036; 85025; 86850; 86900; 86901; 87081; 97110; 97161; 97165; A9270; C1713; C1776; J0171; J0690; J1100; J1170; J1885; J2250; J2270; J2405; J2704; J2710; J2795; J3010; J3370; J7030; J7120

== ENCOUNTER 2023-10-06 14:30 | Outpatient (CLI) | payer MEDICARE, SELFPAY ==
--- NOTE | ~2023-10-06 | XR_ITS ---
EXAMINATION: XR chest 2V DATE: 10/06/2023 14:45 INDICATION: Cough. TECHNIQUE: Frontal and lateral views of the chest were obtained. COMPARISON: Chest 2 views 10/19/2020 FINDINGS: There is no pneumonia, pleural effusion, or pneumothorax. The heart size is normal. IMPRESSION: 1. No acute cardiopulmonary disease. Reviewed, dictated and finalized at location [facility]
== END 2023-10-06 14:31 | disposition home or self-care (01) ==
PROVIDERS: PCP Internal Medicine Gastroenterology; Visit Provider Internal Medicine Gastroenterology
DX: R05.9 Cough, unspecified (principal)
CPT/HCPCS: 71046